=== PATIENT | female | born 1965 | race Caucasian/White ===

== ENCOUNTER 2016-09-09 07:36 | Inpatient (IN) | payer OTHER ==
[~2016-09-09] VITALS: Ht 162.6 cm; Wt 70.2 kg
[2016-09-09] VITALS (9 sets, daily range): BP systolic 124–188; BP diastolic 73–117; PULSE 88–100; TEMP 36.5–37.3; O2SAT 92–98; BMI 29.3
[~2016-09-09 07:36] MED LIST: ACET325T96 PO; ADVIN10/60 INH; ALBUAER INH; ASPI81TA28 PO; ATOR-24 PO; BISA10SU5 PR; BUTA1CAP20 PO; DOCU-94 PO; FERR325T74 PO; FLUO40CA8 PO; FLUT0.15; FURO-85 PO; HEPA1INJ22 SQ; INSDGI SQ; ISOS30TA3 PO; LCTL30 PO; LISI-729 PO; METO25TA3 PO; MOMLX PO; MRLP17X PO; MULT-513 PO; NRN300 PO; NVLGIPEN SC; ONDA4TAB46 PO; OXYC-57 PO; OXYC-59 PO; POTA10TA PO; PRT40 PO; SENN-65 PO
[2016-09-09] MEDS ORDERED: VANCOMYCIN 1GM/270ML NSS IV STA (07:45)
[2016-09-09] MEDS ORDERED: PIPERACILLIN/TAZOBACTAM 4.5 GM/100ML D5W IV STA (07:45)
[2016-09-09] MEDS ORDERED: SODIUM CHLORIDE 0.9% 1000ML 1,000 ML IV ONE (07:45)
[2016-09-09] MEDS ORDERED: ACETAMINOPHEN 500 MG TAB PO STA (07:45)
[2016-09-09 08:08] LABS: URINE APPEARANCE CLEAR (CLEAR); URINE BILIRUBIN NEG (NEG); URINE COLOR YELLOW; URINE NITRITE NEG (NEG); URINE SPECIFIC GRAVITY 1.021 (1.000-1.030); UROBILINOGEN NEG (NEG); ZZURINE CULT IF INDIC CATH YES
[2016-09-09 08:21] LABS: MANUAL MICROSCOPIC REQUIRED? NO; REVIEW REQ? NO
[2016-09-09 08:38] LABS: BASO % 0.1 %; BASO ABS # 0.02 K/uL (0-0.2); EOS % 2.3 %; HEMATOCRIT 23.1 % (37-47); IG% 0.4 %; LYMPH % 5.8 %; LYMPH ABS # 0.79 K/uL (1.2-3.4); MEAN CELL VOLUME 88.5 fL (80-100); MEAN CORPUSCULAR HEMOGLOBIN 28.4 pg (25-34); MONO % 3.2 %; NEUT % 88.2 %; PLATELET COUNT 397 K/uL (130-400); RED BLOOD COUNT 2.61 M/uL (4.2-5.4); WHITE BLOOD COUNT 13.62 K/uL (4.8-10.8)
--- NOTE | 2016-09-09 08:44 | DIAGNOSTIC IMAGING REPORT ---
CHEST ONE VIEW PORTABLE CLINICAL HISTORY: Sepsis dyspnea COMPARISON STUDY: No previous studies for comparison. FINDINGS: Small parenchymal infiltrate medial left base. Atelectasis right base. Mid and upper lungs are clear. Diaphragms smooth. IMPRESSION: Small parenchymal infiltrate left base. Focal atelectasis right base. Electronically signed by: Rainer Solis M.D. 09/09/2016 8:42 AM Dictated Date/Time: 09/09/2016 8:42 AM
[2016-09-09] MEDS ORDERED: ALBUT/IPRATROP 3MG/0.5MG NEB 3 ML VIAL INH STA (08:50)
[2016-09-09 08:56] LABS: COMPLETE YES
[2016-09-09 08:57] LABS: ALT/SGPT 120 U/L (12-78); AST/SGOT 205 U/L (15-37); BLOOD UREA NITROGEN 34 mg/dl (7-18); BUN/CREATININE RATIO 20.1 (10-20); CALCIUM 8.7 mg/dl (8.5-10.1); CARBON DIOXIDE 28 mmol/L (21-32); CHLORIDE 99 mmol/L (98-107); GLUCOSE 335 mg/dl (70-99); MAGNESIUM 2.3 mg/dl (1.8-2.4); POTASSIUM 4.9 mmol/L (3.5-5.1); PROTHROMBIN TIME (PATIENT) 10.9 SECONDS (9.0-12.0); SODIUM 134 mmol/L (136-145)
[2016-09-09 09:00] LABS: ALB/GLOB RATIO 0.6 (0.9-2)
[2016-09-09] MEDS ORDERED: NovoLIN-R INSULIN PER UNIT CHARGE IV STA (09:02)
--- NOTE | 2016-09-09 09:02 | DIAGNOSTIC IMAGING REPORT ---
CT HEAD WITHOUT CONTRAST (CT) CLINICAL HISTORY: confusion COMPARISON STUDY: 04-20 TECHNIQUE: Axial CT of the brain is performed from the vertex to the skull base. IV contrast was not administered for this examination. CT DOSE: 537.48 mGy.cm FINDINGS: No intra or extra-axial mass lesions are visualized. There is no CT evidence of acute cortical infarction. There is no evidence of midline shift. There is no acute hemorrhage. No calvarial fractures are visualized. There is no evidence of pathologic ventricular dilatation. There is no evidence of acute sinusitis IMPRESSION: Normal noncontrast head CT for age Electronically signed by: Cristian Daniel M.D. 09/09/2016 9:00 AM Dictated Date/Time: 09/09/2016 8:59 AM
[2016-09-09 09:07] LABS: ALKALINE PHOSPHATASE 694 U/L (45-117); BETA-HYDROXYBUTYRATE 0.75 mg/dL (0.2-2.81); THYROID STIMULATING HORMONE 0.208 uIu/ml (0.300-4.500)
[2016-09-09] MEDS ORDERED: CASPOFUNGIN INJ 50 MG in SODIUM CHLORIDE 0.9% 250ML 250 ML IV STA (09:15)
--- NOTE | 2016-09-09 09:18 | EMERGENCY ROOM VISIT NOTE ---
History Report prepared by Blue: Samia Brown Under the Supervision of: Dr. Pablo Ortiz M.D. First contact with patient: 07:40 Stated Complaint: FEVER, ALTERED MENTAL, POSSIBLE SEPSIS History of Present Illness The patient is a 51 year old female who presents to the Emergency Room with complaints of persistent altered mental status starting this morning. The patient was brought to the ED by EMS from [facility]. They report that the patient has been lethargic and has had a fever since she woke up this morning. Her O2 sat was 83 on room air and her blood sugar was found to be in the 390s. She was given 10 units of insulin at [facility] and put on nasal cannula. She was not given any medications by EMS en route. She reports SOB which started today. She denies any cough or vomiting. She denies being in any pain. She has a history of COPD and has inhalers at home. The patient was on vancomycin. Her last dose was yesterday. She was also on oral Cipro and an antifungal medication. Source of History: patient, nursing staff Onset: this morning Position: other (global) Quality: other (altered mental status) Timing: other (persistent) Associated Symptoms: + SOB, No cough, No vomiting Note: Pt denies being in any pain. Review of Systems See HPI for pertinent positives & negatives. A total of 10 systems reviewed and were otherwise negative. Past Medical & Surgical Medical Problems: (1) CAD (coronary artery disease) (2) Chronic deep vein thrombosis (DVT) of left upper extremity (3) Chronic osteomyelitis involving right ankle and foot (4) COPD (chronic obstructive pulmonary disease) (5) Depression (6) Diabetes (7) Diabetic retinopathy (8) DM type 2 (diabetes mellitus, type 2) (9) Gastroparesis (10) GERD (gastroesophageal reflux disease) (11) History of migraine (12) Hyperlipidemia (13) Hypertension (14) TIA (transient ischemic attack) (15) TIA (transient ischemic attack) Surgical Problems: (1) H/O eye surgery (2) History of esophagogastroduodenoscopy (EGD) (3) S/P amputation (4) S/P cholecystectomy (5) Status post skin graft Family History Cardiac disorder MOTHER Diabetes mellitus FATHER MOTHER SISTER FH: cancer MOTHER Hypertension FATHER Social History Smoking Status: Former Smoker Marital Status: single Current/Historical Medications Scheduled Aspirin (Aspirin Ec), 81 MG PO DAILY Atorvastatin (Lipitor), 40 MG PO DAILY Bupropion (Wellbutrin Sr), 100 MG PO QAM Caspofungin (Cancidas), 35 MG IV DAILY Cholecalciferol (Vitamin D3), 1 CAP PO DAILY Ciprofloxacin (Ciprofloxacin HCl), 500 MG PO BID Diphenhydramine Hcl (Benadryl Allergy), 1 TAB PO Q6H Ferrous Gluconate (Ferrous Gluconate), 1 TAB PO QDB Fluoxetine (Prozac), 60 MG PO DAILY Fluticasone Propionate (Nasal) (Flonase Allergy Relief), 2 SPRAYS NA DAILY Fluticasone-Salmeterol 115/21 Mcg (Advair Hfa 115/21 Mcg), 2 PUFF INH BID Furosemide (Lasix), 20 MG PO QAM Gabapentin (Gabapentin), 600 MG PO TID Insulin Aspart (Novolog Flexpen), 3 UNITS SC UD Insulin Aspart (Novolog Flexpen), 6 SC QDD Insulin Glargine (Lantus), 16 UNITS SQ BID Isosorbide Mononitrate Ext Rel (Imdur Ext Rel), 30 MG PO QAM Lactobacillus Acidophilus (Lactinex), 1 TAB PO BID Lisinopril (Zestril), 5 MG PO DAILY Loratadine (Claritin), 10 MG PO DAILY Metoclopramide Hcl (Metoclopramide Hcl), 5 MG PO QID Metoprolol Succinate (Toprol Xl), 12.5 MG PO BID Nystatin (Nystatin Suspension), 5 ML PO QID Pantoprazole (Pantoprazole Sodium), 1 TAB PO DAILY Polyethylene (Miralax), 17 GM PO DAILY Senna/Docusate Sod (Senokot S), 1 TAB PO BID Sucralfate (Carafate), 10 ML PO Q6H Triamcinolone Acet (Triamcinolone Acetonide), 1 APPLN TOP BID Vancomycin Hcl (Vancomycin Hcl), 1 GM IV DAILY [Ondansetron Odt], 4 MG PO Q8H Scheduled PRN Acetaminophen Tab (Tylenol), 650 MG PO Q4 PRN for Pain or Fever Albuterol Sulfate (Proventil Hfa), 2 PUFFS INH BID PRN for SOB/Wheezing Morphine Sulfate Ir (Morphine Sulfate Ir), 15 MG PO DAILY PRN for Pain Oxycodone Ir (Roxicodone Ir), 5 MG PO Q4H PRN for Severe Pain Promethazine Hcl (Phenergan), 25 MG PO Q6H PRN for Nausea [Artif Tears Op Melina], 1 DROP OP TID PRN for PRN Allergies Coded Allergies: Metoclopramide (Unverified Allergy, Severe, unknown, 09/09/16) Ondansetron (Unverified Allergy, Severe, unknown, 09/09/16) Sulfa Antibiotics (Unverified Allergy, Severe, unknown, 09/09/16) Amoxicillin (Unverified Allergy, Unknown, UNKNOEN, 09/09/16) Bee Venom (Unverified Allergy, Unknown, HIVES, 09/09/16) Clavulanic Acid (Unverified Allergy, Unknown, UNKNOWN, 09/09/16) Erythromycin (Unverified Allergy, Unknown, UNKNOWN, 09/09/16) Procaine (Unverified Allergy, Unknown, UNKNOWN, 09/09/16) Ethanol (Verified Adverse Reaction, Severe, seizure per pt, 09/09/16) Guaifenesin (Verified Adverse Reaction, Severe, seizure per pt, 09/09/16) Physical Exam Vital Signs Date Time Temp Pulse Resp B/P Pulse Ox O2 Delivery O2 Flow Rate FiO2 09/09/16 12:45 16 98 Nasal Cannula 2.0 09/09/16 12:41 36.5 89 16 154/89 98 2.0 09/09/16 12:15 36.5 96 16 148/85 98 2.0 09/09/16 11:45 37.1 95 14 136/80 96 09/09/16 11:30 37.2 96 16 135/81 97 2.0 09/09/16 11:15 99 16 129/75 96 Nasal Cannula 2.0 09/09/16 11:07 37.3 100 16 124/73 96 09/09/16 09:40 37.2 107 18 113/66 93 Nasal Cannula 2.0 09/09/16 09:15 92 Nasal Cannula 2.0 09/09/16 08:44 102 18 138/82 92 Nasal Cannula 2.0 09/09/16 07:56 38.9 113 16 142/80 80 Room Air 09/09/16 07:55 94 Nasal Cannula 2.0 09/09/16 07:45 115 Physical Exam GENERAL: Patient is in no acute distress. HEENT: No acute trauma, normocephalic atraumatic, mucous membranes dry, no nasal congestion, no scleral icterus. NECK: No stridor, no adenopathy, no meningismus, trachea is midline. LUNGS: Crackles at bases especially the left, no wheezes. Breath sounds equal, no respiratory distress. HEART: Tachycardic with regular rhythm no murmurs. ABDOMEN: Soft, nontender, bowel sounds positive, no hernias, no peritonitis. GROIN: No cellulitis, Segovia catheter draining yellow urine. EXTREMITIES: Right below knee amputation site still has angelica in place, some serous oozing on dressing, no sign of infection, no signs for acute trauma. NEUROLOGIC: Confused but weak, answers simple questions, moving all extremities , no focal deficits. SKIN: No rash, no jaundice, no diaphoresis. Medical Decision & Procedures ER Provider Diagnostic Interpretation: X ray results and stated below per my interpretation and radiologist interpretation. Other radiology results and stated below per my review and radiologist interpretation: CHEST ONE VIEW PORTABLE CLINICAL HISTORY: Sepsis dyspnea COMPARISON STUDY: No previous studies for comparison. FINDINGS: Small parenchymal infiltrate medial left base. Atelectasis right base. Mid and upper lungs are clear. Diaphragms smooth. IMPRESSION: Small parenchymal infiltrate left base. Focal atelectasis right base. Electronically signed by: Rainer Solis M.D. 09/09/2016 8:42 AM Dictated Date/Time: 09/09/2016 8:[address] HEAD WITHOUT CONTRAST (CT) CLINICAL HISTORY: confusion COMPARISON STUDY: 04-20 TECHNIQUE: Axial CT of the brain is performed from the vertex to the skull base. IV contrast was not administered for this examination. CT DOSE: 537.48 mGy.cm FINDINGS: No intra or extra-axial mass lesions are visualized. There is no CT evidence of acute cortical infarction. There is no evidence of midline shift. There is no acute hemorrhage. No calvarial fractures are visualized. There is no evidence of pathologic ventricular dilatation. There is no evidence of acute sinusitis IMPRESSION: Normal noncontrast head CT for age Electronically signed by: Cristian Daniel M.D. 09/09/2016 9:00 AM Dictated Date/Time: 09/09/2016 8:59 AM Laboratory Results 09/09/16 08:25 Red Blood Count 2.61, Mean Corpuscular Volume 88.5, Mean Corpuscular Hemoglobin 28.4, Mean Corpuscular Hemoglobin Concent 32.0, Mean Platelet Volume 12.0, Neutrophils (%) (Auto) 88.2, Lymphocytes (%) (Auto) 5.8, Monocytes (%) (Auto) 3.2, Eosinophils (%) (Auto) 2.3, Basophils (%) (Auto) 0.1, Neutrophils # (Auto) 12.02, Lymphocytes # (Auto) 0.79, Monocytes # (Auto) 0.43, Eosinophils # (Auto) 0.31, Basophils # (Auto) 0.02 09/09/16 08:25 Test 09/09/16 07:43 09/09/16 07:48 09/09/16 08:25 09/09/16 08:33 Urine Color YELLOW Urine Appearance CLEAR (CLEAR) Urine pH 5.0 (4.5-7.5) Urine Specific [place] 1.021 (1.000-1.030) Urine Protein NEG (NEG) Urine Glucose (UA) 3+ (NEG) Urine Ketones NEG (NEG) Urine Occult Blood NEG (NEG) Urine Nitrite NEG (NEG) Urine Bilirubin NEG (NEG) Urine Urobilinogen NEG (NEG) Urine Leukocyte Esterase SMALL (NEG) Urine WBC (Auto) 10-30 /hpf (0-5) Urine RBC (Auto) 0-4 /hpf (0-4) Urine Hyaline Casts (Auto) 1-5 /lpf (0-5) Urine Epithelial Cells (Auto) 10-20 /lpf (0-5) Urine Bacteria (Auto) NEG (NEG) Bedside Glucose 337 mg/dl (70-90) White Blood Count 13.62 K/uL (4.8-10.8) Red Blood Count 2.61 M/uL (4.2-5.4) Hemoglobin 7.4 g/dL (12.0-16.0) Hematocrit 23.1 % (37-47) Mean Corpuscular Volume 88.5 fL (80-100) Mean Corpuscular Hemoglobin 28.4 pg (25-34) Mean Corpuscular Hemoglobin Concent 32.0 g/dl (32-36) Platelet Count 397 K/uL (130-400) Mean Platelet Volume 12.0 fL (7.4-10.4) Neutrophils (%) (Auto) 88.2 % Lymphocytes (%) (Auto) 5.8 % Monocytes (%) (Auto) 3.2 % Eosinophils (%) (Auto) 2.3 % Basophils (%) (Auto) 0.1 % Neutrophils # (Auto) 12.02 K/uL (1.4-6.5) Lymphocytes # (Auto) 0.79 K/uL (1.2-3.4) Monocytes # (Auto) 0.43 K/uL (0.11-0.59) Eosinophils # (Auto) 0.31 K/uL (0-0.5) Basophils # (Auto) 0.02 K/uL (0-0.2) RDW Standard Deviation 49.4 fL (36.4-46.3) RDW Coefficient of Variation 15.3 % (11.5-14.5) Immature Granulocyte % (Auto) 0.4 % Immature Granulocyte # (Auto) 0.05 K/uL (0.00-0.02) Prothrombin Time 10.9 SECONDS (9.0-12.0) Prothromb Time International Ratio 1.0 (0.9-1.1) Activated Partial Thromboplast Time 26.4 SECONDS (21.0-31.0) Partial Thromboplastin Ratio 1.0 Anion Gap 7.0 mmol/L (3-11) Estimated GFR () 40.3 Estimated GFR (Non- 34.8 BUN/Creatinine Ratio 20.1 (10-20) Calcium Level 8.7 mg/dl (8.5-10.1) Magnesium Level 2.3 mg/dl (1.8-2.4) Total Bilirubin 0.3 mg/dl (0.2-1) Aspartate Amino Transf (AST/SGOT) 205 U/L (15-37) Alanine Aminotransferase (ALT/SGPT) 120 U/L (12-78) Alkaline Phosphatase 694 U/L (45-117) Troponin I 0.034 ng/ml (0-0.045) Total Protein 6.3 gm/dl (6.4-8.2) Albumin 2.4 gm/dl (3.4-5.0) Globulin 3.9 gm/dl (2.5-4.0) Albumin/Globulin Ratio 0.6 (0.9-2) Beta-Hydroxybutyric Acid 0.75 mg/dL (0.2-2.81) Thyroid Stimulating Hormone (TSH) 0.208 uIu/ml (0.300-4.500) Free Thyroxine 1.37 ng/dl (0.80-1.60) Free Triiodothyronine 2.53 pg/ml (2.30-4.20) Bedside Lactic Acid Venous 1.27 mmol/L (0.90-1.70) Laboratory results reviewed by me. Medications Administered Medications (Trade) Dose Ordered Sig/Josseline Route Start Time Stop Time Status Last Admin Dose Admin Sodium Chloride (Nss 1000ml) 1,000 ml @ 999 mls/hr Q1H1M ONCE IV 09/09/16 07:45 09/09/16 08:45 DC 09/09/16 07:45 999 MLS/HR Piperacillin Sod/ Tazobactam Sod (Zosyn Iv) 4.5 gm ONE STAT IV 09/09/16 07:45 09/09/16 07:48 DC 09/09/16 08:42 4.5 GM Vancomycin HCl (Vancomycin 1gm/ 270ml Nss) 1 gm ONE STAT IV 09/09/16 07:45 09/09/16 07:49 DC 09/09/16 08:41 1 GM Acetaminophen (Tylenol Tab) 1,000 mg NOW STAT PO 09/09/16 07:45 09/09/16 07:49 DC 09/09/16 08:42 1,000 MG Albuterol/ Ipratropium (Duoneb) 3 ml NOW STAT INH 09/09/16 08:50 09/09/16 08:52 DC 09/09/16 08:50 3 ML Insulin Human Regular 8 units 8 units NOW STAT IV 09/09/16 09:02 09/09/16 09:04 DC 09/09/16 09:11 8 UNITS Caspofungin/ Sodium Chloride (Cancidas Inj/ Nss 250ml) 260 ml @ 250 mls/hr NOW STAT IV 09/09/16 09:15 09/09/16 10:17 DC 09/09/16 09:40 250 MLS/HR Procedure Central Venous Catheter Indication: need for IV access, sepsis Catheter type: triple lumen Location: left groin Verbal consent was obtained after the risks and benefits were explained, including but not limited to pneumothorax, hemothorax, vessel injury, bleeding, scarring, infection, pain, and bone/joint/nerve damage. At this time, the risks of the procedure are less than the risks of NOT performing the procedure. A time out was taken and the correct patient and site identified. The patient was placed in the supine position and the skin was prepped in the standard fashion with chlorhexidine and full sterile drapes applied. The proper landmarks were identified with ultrasound, anesthetized with 1% lidocaine without epinephrine, and the needle was inserted through the skin in the standard fashion. The needle was carefully advanced into blood vessel lumen. The guidewire was placed uneventfully. The vessel is dilated and the catheter was placed. It was sutured into position. There was good blood return from all ports. The patient tolerated the procedure well and there were no complications. ECG Indication: altered mental status Rate (beats per minute): 113 Rhythm: sinus tachycardia Findings: no acute ischemic change, no ectopy ED Course 0740: The patient was evaluated in room A10. A complete history and physical exam was performed. 0745: Acetaminophen 1000 mg PO, Vancomycin HCl 1 gm IV, Zosyn Iv 4.5 gm IV, NSS 1000 ml @ 999 mls/hr IV. 0850: Duoneb 3 ml INH. 0858: I discussed the patient's case [facility]. The patient will be evaluated for further management. 0902: Insulin Human Regular 8 units IV, Caspofungin 50 mg/Sodium Chloride 260 ml @ 250 mls/hr IV. Medical Decision Differential diagnoses: sepsis, dehydration, pneumonia, UTI, cellulitis, bacteremia, electrolyte imbalance, anemia There is a mild leukocytosis which would be consistent with infection. The patient is anemic with a hemoglobin of 7.5-as per her old records, last hemoglobin was 8 just a few days ago. There is some renal insufficiency/ dehydration by renal panel testing. Glucose was in the 300 range. Elevation to the liver enzymes was noted. Urinalysis does not show signs of infection. Chest film shows a left base infiltrate. No CHF. EKG shows sinus tachycardia, no acute ischemia. Cardiac enzyme testing times one is not consistent with acute cardiac injury. Blood cultures and urine cultures are pending. Lactic acid level was not elevated making severe sepsis less likely. There was no coagulopathy. I was able to review some of the records from her recent hospital stay. She had been on IV antibiotics and IV antifungals. She had been diagnosed with sepsis. She had a recent right below the knee amputation for osteomyelitis. The patient was aggressively managed. She was given IV saline. She was ordered for IV Zosyn and IV vancomycin. She was ordered for IV Caspofungin. She received a DuoNeb, oral Tylenol, IV insulin. Blood was ordered for possible transfusion. A brain CT was done because of the confusion, there was no acute bleed or mass effect. I did elect to place a left femoral central line as her IV access was poor. This went without incident as noted in the above procedure note. The patient is septic, it appears that she is septic from a pneumonia. She is being treated with IV antibiotics and IV antifungals. The antifungal was given because she had recently grown areli from blood cultures. She had been on antifungals prior to her arrival at our hospital. I spoke to the patient and the on-call hospitalist. Case management has been involved. Admission/observation is warranted. Consults Time Called: 0850 Consulting Physician: [facility] hospitalist group Returned Call: [phone] I discussed the patient's case with her. The patient will be evaluated for further management. Impression Primary Impression: Sepsis Additional Impressions: Change in mental status Pneumonia Anemia Critical Care I have personally spent greater than 35 minutes of critical care time in the direct management of this patient. This includes bedside care, interpretation of diagnostic studies, and testing, discussion with consultants, patient, and family members, and other required patient management activities. This 35 minutes is in excess of all separately billable procedures. Scribe Attestation The scribe's documentation has been prepared under my direction and personally reviewed by me in its entirety. I confirm that the note above accurately reflects all work, treatment, procedures, and medical decision making performed by me. Departure Information Dispostion Being Evaluated By Hospitalist Referrals Sky Tesfaye (PCP) Problem Qualifiers
[2016-09-09] MEDS ORDERED: NITROGLYCERIN 0.4 MG SL PER TAB CHARGE SL PRN (09:45)
[2016-09-09] MEDS ORDERED: ACETAMINOPHEN 325 MG TAB PO PRN (09:45)
[2016-09-09] MEDS ORDERED: CMP5 PO (09:48)
[2016-09-09] MEDS ORDERED: TRMCR515 TOP (09:48)
[2016-09-09] MEDS ORDERED: FLUT1INH7 INH (09:48)
[2016-09-09] MEDS ORDERED: [UNRECOGNIZED DRUG - CODE] IV (09:48)
[2016-09-09] MEDS ORDERED: SUCR1TAB PO (09:48)
[2016-09-09] MEDS ORDERED: OXYC1TAB3 PO (09:48)
[2016-09-09] MEDS ORDERED: VANC1INJ IV (09:48)
[2016-09-09] MEDS ORDERED: BUPR-83 PO (09:48)
[2016-09-09] MEDS ORDERED: NYSS/ PO (09:48)
[2016-09-09] MEDS ORDERED: CPR500 PO (09:48)
[2016-09-09] MEDS ORDERED: CHOL2000 PO (09:48)
[2016-09-09] MEDS ORDERED: GLUCOSE 10 TABS/TUBE PO PRN (10:00)
[2016-09-09] MEDS ORDERED: GLUCAGON FOR INJ 1 MG VIAL SQ PRN (10:00)
[2016-09-09] MEDS ORDERED: DEXTROSE 50% 50 ML SYR IV PRN (10:00)
[2016-09-09] MEDS ORDERED: GLUCOSE 40% GEL 15 GM TUBE PO PRN (10:00)
[2016-09-09] MEDS ORDERED: POLYETHYLENE (MIRALAX) 17 GM PACK PO PRN (10:30)
[2016-09-09] MEDS ORDERED: PROCHLORPERAZINE MALEATE 5 MG TAB PO PRN (10:30)
[2016-09-09] MEDS ORDERED: FLUT115A INH (10:39)
[2016-09-09] MEDS ORDERED: ONDANSETRON ODT PO (10:40)
[2016-09-09] MEDS ORDERED: PROM25TA9 PO (10:40)
[2016-09-09] MEDS ORDERED: LCTX PO (10:40)
[2016-09-09] MEDS ORDERED: NVLGI/PEN SC (10:40)
[2016-09-09] MEDS ORDERED: METO5TAB2 PO (10:40)
[2016-09-09] MEDS ORDERED: MORP15TA PO (10:40)
[2016-09-09] MEDS ORDERED: BUPR100T8 PO (10:40)
[2016-09-09] MEDS ORDERED: CRFL PO (10:40)
[2016-09-09] MEDS ORDERED: DIPH1TAB87 PO (10:40)
[2016-09-09] MEDS ORDERED: ARTIFICIAL TEARS OP (10:40)
[2016-09-09] MEDS ORDERED: CLR10 PO (10:40)
--- NOTE | 2016-09-09 10:52 | History and Physical ---
History & Physical Date & Time of Service: Sep 09, 2016 at 09:57 Chief Complaint: Fever, Altered Mental, Possible Sepsis Primary Care Physician: Sky Tesfaye History of Present Illness Source: patient, clinic records, hospital records Patient seen and examined. 51 year old female with PMHx of IDDM, HTN, HLD, CAD , depression GERD, and recent right foot osteomyelitis s/p BKA, MRSA, and fungemia presents to the ED from [facility] with AMS this morning. Per report patient was found confused this AM. She was febrile at 103 F, she was hypoxic on RA. EMS was called and she was brought to the ED for further evaluation. When seen by this real estate underwriter nursing staff states patients mental status has improved. She was still unsure where she was and slow to answer questions. She reports she has been feeling very cold recently, she has rhinorrhea, and cough. She denies sputum production. She states sometimes she has chest pain. She reports diarrhea and dysuria. She states she has had vomiting recently and states sometimes she feels like she chokes. She denies SOB. Patient was discharged from [facility] yesterday following a RBKA for osteomyelitis. A blood culture on 08/25 grew areli albicans. [facility] vancom[facility], Cipro and caspofungin. In the ED patient is febrile, tachycardic, and hypoxic, wbc count is 13K, lactate is <2, CXR shows left base infiltrate. Crea is 1.7 She received duonebs, IVFs, Vanco, Zosyn, and caspofungin. She is resting comfortably. She will be admitted for further workup and treatment. Past Medical/Surgical History Medical Problems: (1) CAD (coronary artery disease) Status: Chronic (2) Chronic deep vein thrombosis (DVT) of left upper extremity Status: Chronic (3) Chronic osteomyelitis involving right ankle and foot Status: Chronic (4) COPD (chronic obstructive pulmonary disease) Status: Chronic (5) Depression Status: Chronic (6) Diabetes Status: Chronic (7) Diabetic retinopathy Status: Chronic (8) DM type 2 (diabetes mellitus, type 2) Status: Chronic (9) Gastroparesis Status: Chronic (10) GERD (gastroesophageal reflux disease) Status: Chronic (11) History of migraine Status: Chronic (12) Hyperlipidemia Status: Chronic (13) Hypertension Status: Chronic (14) TIA (transient ischemic attack) Status: Resolved (15) TIA (transient ischemic attack) Status: Chronic Surgical Problems: (1) H/O eye surgery Status: Chronic (2) History of esophagogastroduodenoscopy (EGD) Status: Chronic (3) S/P amputation Permanent Comment: partial amputation of heel bone on right foot Status: Chronic (4) S/P cholecystectomy Status: Chronic (5) Status post skin graft Permanent Comment: right foot Status: Chronic Family History Cardiac disorder MOTHER Diabetes mellitus FATHER MOTHER SISTER FH: cancer MOTHER Hypertension FATHER Social History Smoking Status: Former Smoker Alcohol Use: none Marital Status: single Housing status: lives alone Occupational Status: unemployed Multi-Drug Resistant Organisms History of MDRO: Yes Type of MDRO: MRSA Allergies Coded Allergies: Metoclopramide (Unverified Allergy, Severe, unknown, 09/09/16) Ondansetron (Unverified Allergy, Severe, unknown, 09/09/16) Sulfa Antibiotics (Unverified Allergy, Severe, unknown, 09/09/16) Amoxicillin (Unverified Allergy, Unknown, UNKNOEN, 09/09/16) Bee Venom (Unverified Allergy, Unknown, HIVES, 09/09/16) Clavulanic Acid (Unverified Allergy, Unknown, UNKNOWN, 09/09/16) Erythromycin (Unverified Allergy, Unknown, UNKNOWN, 09/09/16) Procaine (Unverified Allergy, Unknown, UNKNOWN, 09/09/16) Ethanol (Verified Adverse Reaction, Severe, seizure per pt, 09/09/16) Guaifenesin (Verified Adverse Reaction, Severe, seizure per pt, 09/09/16) Home Medications Scheduled Aspirin (Aspirin Ec), 81 MG PO DAILY Atorvastatin (Lipitor), 40 MG PO DAILY Bupropion (Wellbutrin Sr), 100 MG PO QAM Caspofungin (Cancidas), 35 MG IV DAILY Cholecalciferol (Vitamin D3), 1 CAP PO DAILY Ciprofloxacin (Ciprofloxacin HCl), 500 MG PO BID Diphenhydramine Hcl (Benadryl Allergy), 1 TAB PO Q6H Ferrous Gluconate (Ferrous Gluconate), 1 TAB PO QDB Fluoxetine (Prozac), 60 MG PO DAILY Fluticasone Propionate (Nasal) (Flonase Allergy Relief), 2 SPRAYS NA DAILY Fluticasone-Salmeterol 115/21 Mcg (Advair Hfa 115/21 Mcg), 2 PUFF INH BID Furosemide (Lasix), 20 MG PO QAM Gabapentin (Gabapentin), 600 MG PO TID Insulin Aspart (Novolog Flexpen), 3 UNITS SC UD Insulin Aspart (Novolog Flexpen), 6 SC QDD Insulin Glargine (Lantus), 16 UNITS SQ BID Isosorbide Mononitrate Ext Rel (Imdur Ext Rel), 30 MG PO QAM Lactobacillus Acidophilus (Lactinex), 1 TAB PO BID Lisinopril (Zestril), 5 MG PO DAILY Loratadine (Claritin), 10 MG PO DAILY Metoclopramide Hcl (Metoclopramide Hcl), 5 MG PO QID Metoprolol Succinate (Toprol Xl), 12.5 MG PO BID Nystatin (Nystatin Suspension), 5 ML PO QID Pantoprazole (Pantoprazole Sodium), 1 TAB PO DAILY Polyethylene (Miralax), 17 GM PO DAILY Senna/Docusate Sod (Senokot S), 1 TAB PO BID Sucralfate (Carafate), 10 ML PO Q6H Triamcinolone Acet (Triamcinolone Acetonide), 1 APPLN TOP BID Vancomycin Hcl (Vancomycin Hcl), 1 GM IV DAILY [Ondansetron Odt], 4 MG PO Q8H Scheduled PRN Acetaminophen Tab (Tylenol), 650 MG PO Q4 PRN for Pain or Fever Albuterol Sulfate (Proventil Hfa), 2 PUFFS INH BID PRN for SOB/Wheezing Morphine Sulfate Ir (Morphine Sulfate Ir), 15 MG PO DAILY PRN for Pain Oxycodone Ir (Roxicodone Ir), 5 MG PO Q4H PRN for Severe Pain Promethazine Hcl (Phenergan), 25 MG PO Q6H PRN for Nausea [Artif Tears Op Melina], 1 DROP OP TID PRN for PRN Review of Systems See above for pertinent positives & negatives. A total of 10 systems reviewed and were otherwise negative. Physical Exam Vital Signs Date Time Temp Pulse Resp B/P Pulse Ox O2 Delivery O2 Flow Rate FiO2 09/09/16 09:40 37.2 107 18 113/66 93 Nasal Cannula 2.0 09/09/16 09:15 92 Nasal Cannula 2.0 09/09/16 08:44 102 18 138/82 92 Nasal Cannula 2.0 09/09/16 07:56 38.9 113 16 142/80 80 Room Air 09/09/16 07:55 94 Nasal Cannula 2.0 09/09/16 07:45 115 General Appearance: + pertinent finding (WD/WN 51 year old female who appears older than stated age lying in bed in NAD ) Head: normocephalic, atraumatic Eyes: PERRL, EOMI, sclerae normal ENT: hearing grossly normal, pharynx normal Neck: supple, no JVD Respiratory/Chest: chest non-tender, no respiratory distress, no accessory muscle use, + crackles (trace, left base ) Cardiovascular: no edema, no gallop, no JVD, no murmur, normal peripheral pulses, + tachycardia (100s) Abdomen/GI: normal bowel sounds, non tender, no organomegaly Back: normal inspection, no muscle spasm Extremities/Musculoskelatal: no calf tenderness, normal capillary refill, no pedal edema, + pertinent finding (right BKA ) Neurologic/Psych: + pertinent finding (Alert, oriented to time, and self. Answers questions approrpiately with encouragement and prompting. No focal deficits ) Skin: normal color, warm/dry, no rash Lymphatic: no adenopathy Diagnostics Laboratory Results Results Past 24 Hours Test 09/09/16 07:43 09/09/16 07:48 09/09/16 08:25 09/09/16 08:33 Range/Units Urine Color YELLOW Urine Appearance CLEAR CLEAR Urine pH 5.0 4.5-7.5 Urine Specific [place] 1.021 1.000-1.030 Urine Protein NEG NEG Urine Glucose (UA) 3+ NEG Urine Ketones NEG NEG Urine Occult Blood NEG NEG Urine Nitrite NEG NEG Urine Bilirubin NEG NEG Urine Urobilinogen NEG NEG Urine Leukocyte Esterase SMALL NEG Urine WBC (Auto) 10-30 0-5 /hpf Urine RBC (Auto) 0-4 0-4 /hpf Urine Hyaline Casts (Auto) 1-5 0-5 /lpf Urine Epithelial Cells (Auto) 10-20 0-5 /lpf Urine Bacteria (Auto) NEG NEG Bedside Glucose 337 70-90 mg/dl White Blood Count 13.62 4.8-10.8 K/uL Red Blood Count 2.61 4.2-5.4 M/uL Hemoglobin 7.4 12.0-16.0 g/dL Hematocrit 23.1 37-47 % Mean Corpuscular Volume 88.5 80-100 fL Mean Corpuscular Hemoglobin 28.4 25-34 pg Mean Corpuscular Hemoglobin Concent 32.0 32-36 g/dl Platelet Count 397 130-400 K/uL Mean Platelet Volume 12.0 7.4-10.4 fL Neutrophils (%) (Auto) 88.2 % Lymphocytes (%) (Auto) 5.8 % Monocytes (%) (Auto) 3.2 % Eosinophils (%) (Auto) 2.3 % Basophils (%) (Auto) 0.1 % Neutrophils # (Auto) 12.02 1.4-6.5 K/uL Lymphocytes # (Auto) 0.79 1.2-3.4 K/uL Monocytes # (Auto) 0.43 0.11-0.59 K/uL Eosinophils # (Auto) 0.31 0-0.5 K/uL Basophils # (Auto) 0.02 0-0.2 K/uL RDW Standard Deviation 49.4 36.4-46.3 fL RDW Coefficient of Variation 15.3 11.5-14.5 % Immature Granulocyte % (Auto) 0.4 % Immature Granulocyte # (Auto) 0.05 0.00-0.02 K/uL Prothrombin Time 10.9 9.0-12.0 SECONDS Prothromb Time International Ratio 1.0 0.9-1.1 Activated Partial Thromboplast Time 26.4 21.0-31.0 SECONDS Partial Thromboplastin Ratio 1.0 Sodium Level 134 136-145 mmol/L Potassium Level 4.9 3.5-5.1 mmol/L Chloride Level 99 98-107 mmol/L Carbon Dioxide Level 28 21-32 mmol/L Anion Gap 7.0 3-11 mmol/L Blood Urea Nitrogen 34 7-18 mg/dl Creatinine 1.70 0.60-1.20 mg/dl Estimated GFR () 40.3 Estimated GFR (Non- 34.8 BUN/Creatinine Ratio 20.1 10-20 Random Glucose 335 70-99 mg/dl Calcium Level 8.7 8.5-10.1 mg/dl Magnesium Level 2.3 1.8-2.4 mg/dl Total Bilirubin 0.3 0.2-1 mg/dl Aspartate Amino Transf (AST/SGOT) 205 15-37 U/L Alanine Aminotransferase (ALT/SGPT) 120 12-78 U/L Alkaline Phosphatase 694 45-117 U/L Troponin I 0.034 0-0.045 ng/ml Total Protein 6.3 6.4-8.2 gm/dl Albumin 2.4 3.4-5.0 gm/dl Globulin 3.9 2.5-4.0 gm/dl Albumin/Globulin Ratio 0.6 0.9-2 Beta-Hydroxybutyric Acid 0.75 0.2-2.81 mg/dL Thyroid Stimulating Hormone (TSH) 0.208 0.300-4.500 uIu/ml Bedside Lactic Acid Venous 1.27 0.90-1.70 mmol/L Microbiology Results 09/09/16 Blood Culture, Received Pending 09/09/16 Blood Culture, Received Pending 09/09/16 Urine Culture, Received Pending Diagnostic Radiology CT HEAD Per radiologist read: IMPRESSION: Normal noncontrast head CT for age CXR Per radiologist read: IMPRESSION: Small parenchymal infiltrate left base. Focal atelectasis right base. EKG Sinus Tachycardia 113 BPM, QTc 409 Impression Assessment and Plan Complicated 51 year old female discharged from [facility] to [facility] yesterday following, right BKA for osteomyelitis, also with fungemia, presents to the ED with confusion, fever hypoxia. SEPSIS secondary to Health Care Associated Pneumonia -Admit to tele -Presents with fever, confusion, tachycardia, hypoxia, leukocytosis, hyperglycemia, MABEL -Lactate <2, BP stable -Likely source: pneumonia -? aspiration pneumonia as patient currently on vanco, cipro, and capsofungin -Blood cultures, urine culture, sputum culture pending -empirically treat with Zosyn, Vancomycin -ID consulted placed for further input -check c. diff toxin -R/O Flu -CBC, PRP, Mg in AM FUNGEMIA -Blood culture on 08/25 with areli albicans -Caspofungin changed to fluconazole per ID -ID consulted for further management H/O OSTEOMYELITIS S/P RIGHT BKA -POD #4, -Has history of MRSA -continue Vancomycin -ID consult placed -contact precautions ACUTE BLOOD LOSS ANEMIA -secondary to Right BKA on 09/06 -hgb 7.4, no active bleeding -with history of CAD -transfuse 1 units PRBCs now ACUTE RENAL FAILURE -crea 1.7, baseline 1, was 2.4 yesterday -likely secondary to dehydration, sepsis -hold diuretics -IVF hydration -repeat in AM IDDM -with hyperglycemia, no DKA -SSI coverage -pharmacy consulted for glycemic control -update A1c -BSG AC HS -consistent carb diet CAD -states she occasionally has intermittent chest pain -troponin negative x 1 -EKG nonischemic -Repeat Troponin -continue BB, Statin ,Aspirin HLD -continue statin HTN -stable -continue BB -hold ACEI for MABEL -monitor in tele DEPRESSION -continue Prozac, Wellbutrin GERD -continue PPI, Carafate DVT PROPHYLAXIS: SCDs, RE: anemia CODE STATUS: FULL CODE DISPO:In my clinical judgment this beneficiary meets acute admission criteria, established by [facility], that includes being hospitalized through two midnights. Patient seen in collaboration with Dr. Van. I have seen, examined and discussed this patient and I agree with the above note. Patient presents from [facility] with AMS. Recent hospitalization and right BKA. Vitals reviewed. PE: General- drowsy Eyes- EOMI; no scleral icterus Neck- no stridor; trachea midline Lungs- CTA bilaterally; no wheezes/crackles Heart- RRR; no m/r/g Abdomen- soft; NTND; nBS Back- no gross abnormalities Extremities- right BKA bandage c/d/i Neuro- unable to fully assess as patient drowsy Skin- no appreciable rash Labs, imaging and EKG reviewed. Agree with plan as outlined above. ID consulted. Continue Vancomycin, Zosyn and Fluconazole. Repeat cultures pending. Transfuse 1unit PRBC's for anemia, likely related to recent surgery. Troponin uptrending, possibly demand in the setting of anemia and infection. EKG without ischemic changes. Trend troponin and check TTE. Glycemic pharmacy consulted for insulin management. Advanced Directives Existing Living Will: No Existing Power of Back Tufter: No VTE Prophylaxis VTE Risk Assessment Done? Y/N: Yes Risk Level: Moderate
[2016-09-09] MEDS ORDERED: PHARMACY GLYCEMIC MGMT CONSULT PRN (11:47)
--- NOTE | 2016-09-09 12:17 | Pharmacy Progress Note ---
Glycemic Control Intl Consult Date of Service Sep 09, 2016. Scope Glycemic Pharmacist consulted by Lauren Harrell PA-C on 09/09/16 for glycemic control and to write orders per [facility] inpatient glycemic control protocol Objective Weight (Kilograms): 77.300 Accuchecks BSG (last 24hrs): Test 09/09/16 07:48 09/09/16 08:25 Bedside Glucose 337 mg/dl (70-90) Random Glucose 335 mg/dl (70-99) Laboratory Data (last 24hrs) Test 09/09/16 08:25 Anion Gap 7.0 mmol/L BUN/Creatinine Ratio 20.1 Blood Urea Nitrogen 34 mg/dl Creatinine 1.70 mg/dl Potassium Level 4.9 mmol/L Sodium Level 134 mmol/L White Blood Count 13.62 K/uL Red Blood Count 2.61 M/uL Hemoglobin 7.4 g/dL Hematocrit 23.1 % Mean Corpuscular Volume 88.5 fL Mean Corpuscular Hemoglobin 28.4 pg Mean Corpuscular Hemoglobin Concent 32.0 g/dl Platelet Count 397 K/uL Mean Platelet Volume 12.0 fL Neutrophils (%) (Auto) 88.2 % Lymphocytes (%) (Auto) 5.8 % Monocytes (%) (Auto) 3.2 % Eosinophils (%) (Auto) 2.3 % Basophils (%) (Auto) 0.1 % Neutrophils # (Auto) 12.02 K/uL Lymphocytes # (Auto) 0.79 K/uL Monocytes # (Auto) 0.43 K/uL Eosinophils # (Auto) 0.31 K/uL Basophils # (Auto) 0.02 K/uL Recent Pertinent Medications Outpatient Anti-diabetic Regimen: * Lantus 16 units BID * Novolog 3 units w breakfast and lunch * Novolog 6 units w dinner * For BSG>150, use correction factor of 25 mg/dL/unit * A1c unavailable - on order with AM labs Risk Factors for Insulin Resistance: * Infection * Recent Surgery * Diet Assessment & Plan ASSESSMENT: * 51 yo F admitted with sepsis secondary to HCAP, BSGs >300 mg/dL in the ED * 8 units of Regular insulin IV given X 1 in ED @0900, Repeat BSG unavailable * Recent A1c unavailable to assess baseline resistance * Pt likely missed insulin doses this AM given ED admission time- give home dose of Lantus as soon as patient admitted * Initiate weight-based Novolog, stress of 2 and reassess in the AM * ADA & AACE recommend a goal blood sugar range 140-180 mg/dl for the majority of critically ill & non-critically ill patients. However, more stringent targets may be selected in individual cases. Will utilize more stringent goal of 110-150mg/dl based on patient age & comorbidities. Additionally, tighter glycemic control is warranted to facilitate wound/infection healing. PLAN FOR INPATIENT GLYCEMIC CONTROL: * Basal insulin with LANTUS 16 units SQ BID, first dose NOW * Correctional Insulin with NOVOLOG per scale ACHS + 0200 check for sustained hyperglycemia * Goal Range: Low 110 mg/dL - High 150 mg/dL * Correction Factor: 30 mg/dL/unit * Nutritional / Prandial insulin per carb ratio of 1 unit per 10 grams CHO consumed * A1c to be assessed with AM labs tomorrow * Please note that the plan above was derived based on current level of insulin resistance and hospital stress. These recommendations are appropriate for inpatient admission only. Plan of care upon discharge will need to be reassessed to avoid potential outpatient hypo/hyperglycemia. Thank you.
[2016-09-09] MEDS: NYSTATIN SUSP 500,000 U/5 ML UDC PO SCH ×3 (13:00→19:44)
[2016-09-09] MEDS ORDERED: INSULIN GLARGINE SOLOSTAR 100 UNITS/ML 3 ML PEN SC STA (13:24)
[2016-09-09] MEDS ORDERED: PIPERACILL/TAZOBAC CONSULT ACTIVE PRN (14:00)
[2016-09-09] MEDS ORDERED: CASPOFUNGIN~PHARMACY CONSULT IN PROGRESS PRN (14:00)
[2016-09-09] MEDS ORDERED: VANCOMYCIN CONSULT ACTIVE PRN (14:00)
--- NOTE | 2016-09-09 14:06 | Progress Note ---
Progress Note Date of Service Sep 09, 2016. Progress Note ID Consult Dictated #[id number] A/P: 1. Sepsis, broad ddx: bsi, hcap (infiltrate LLL, ? new), uti (doubt with negative ua), surgical site infection (recent bka) -Continue abx, reported outpt blood culture with c. albicans, received caspo at rehab and in ER today, LFT's slightly elevated, will change to fluconazole, but will need close monitoring of LFT's. Continue vanco and zosyn pending additional micro data -Sputum culture if able -Local wound care to incision -Will follow, thank you
[2016-09-09] MEDS: SODIUM CHLORIDE 0.9% 1000ML 1,000 ML IV SCH ×2 (14:18→21:36)
[2016-09-09] MEDS: INSULIN ASPART 100 UNITS/ML 3 ML PEN SC SCH ×3 (14:45→21:27)
--- NOTE | 2016-09-09 14:55 | INFECT. DISEASE CONSULTATION ---
DATE OF CONSULTATION: 09/09/2016 DATE OF CONSULTATION: 09/09/2016. REQUESTING PHYSICIAN: Dr. Van. HISTORY OF PRESENT ILLNESS: This is a 51-year-old female who was admitted from [facility] after she had presented there yesterday. Per her H\T\P she was recently hospitalized and underwent a right BKA secondary to underlying osteomyelitis. She reportedly had a history of MRSA infection. She also had positive blood cultures for Priya albicans on 08/25/2016. It is unclear if she also had positive blood cultures for MRSA as well. She was discharged from the hospital 1 day prior on vancomycin, caspofungin and ciprofloxacin for a previously diagnosed fungemia and osteomyelitis. She was found today to have a fever of 102 degrees at the senior care and also had an acute change in mental status. She was subsequently transferred to [facility] for further evaluation. On my examination, I am unable to obtain any review of systems from this patient as she is extremely lethargic. She is receiving a blood transfusion during my examination. She did have a T-max on arrival to the hospital today of 38.9. She has subsequently been afebrile. She was continued on her broad-spectrum antibiotics as she appears to be tolerating these. Again, I am unable to obtain any review of systems from this patient. She did undergo a CAT scan of the head which was unremarkable. She does have a white blood cell count of 13,000 and a left basilar infiltrate versus atelectasis on chest x-ray in the ER. Her creatinine is elevated at 1.7. PAST MEDICAL HISTORY: Significant for coronary artery disease, history of left upper extremity DVT, osteomyelitis of the right foot requiring a below the knee amputation, COPD, depression, diabetes requiring insulin, diabetic retinopathy, gastroparesis, GERD, migraine headaches, hyperlipidemia, hypertension, history of TIA. PAST SURGICAL HISTORY: Significant for eye surgery, EGD, BKA, cholecystectomy and skin grafting. FAMILY HISTORY: Noncontributory. SOCIAL HISTORY: Significant for history of tobacco use. There is no known alcohol or drug use. ALLERGIES: SHE HAS ALLERGIES TO REGLAN, ZOFRAN, SULFA, PENICILLIN, ERYTHROMYCIN, PROCAINE, ETHANOL AND GUAIFENESIN. CURRENT MEDICATIONS: Include aspirin, Lipitor, Wellbutrin, Prozac, Flonase, Imdur, Protonix, vitamin D, iron, Lantus, Toprol-XL, Senokot, eyedrops, Carafate, Neurontin, Zosyn, Percocet, insulin, Nystatin, oxycodone, albuterol, MiraLax, Tylenol. She also received vancomycin and caspofungin in the Emergency Room. PHYSICAL EXAMINATION: VITAL SIGNS: Again T-max is 38.9, current temperature is 36.6, pulse is 97, respiratory rate is 22, blood pressure is 188/117, oxygen saturation is 94-98% on 2 liters nasal cannula. GENERAL: She is lethargic, but responsive on my examination. HEAD, EYES, EARS, NOSE, AND THROAT: Mucous membranes are dry. HEART: Regular and tachycardic. LUNGS: Clear bilaterally with poor inspiratory effort. ABDOMEN: Soft and nondistended. There is no edema on the left lower extremity, right BKA dressing is clean, dry and intact. A Segovia catheter is in place with clear yellow urine. She is receiving a blood transfusion on my examination. LABORATORY STUDIES: CBC reveals a white blood cell count of 13.6, hemoglobin 7.4, hematocrit 23.1 and platelets are 397. Chemistry panel reveals a sodium of 134, potassium 4.9, chloride 99, bicarbonate 22, BUN 34, creatinine 1.7, glucose is 335, AST is 205, ALT is 120, alkaline phosphatase 694. Lactic acid is 1.2. Blood cultures and urine cultures are pending. IMAGING: As reviewed previously. ASSESSMENT AND PLAN: Clinical picture consistent with sepsis in a patient with recent diagnosed fungemia and osteomyelitis requiring amputation. She should be continued on broad-spectrum antibiotics. Vancomycin was given in the Emergency Room and this can be dosed after receiving a random vancomycin level with her elevated creatinine. Blood cultures are pending and I will follow the results of these. Per the H\T\P, she reportedly had Priya albicans that grew from previous blood cultures. Upon confirmation of this she could be changed to fluconazole 400 mg daily; however, she does have a mild elevation of her liver function studies and this will need to be monitored. It is unclear to me if an echocardiogram was performed at her last hospitalization, but if not this should be done to rule out endocarditis. Certainly this could be from new aspiration event or healthcare associated pneumonia as she does have a small left lower lobe infiltrate. It is unclear to me if this was present previously. However, she is on broad-spectrum antibiotics. If a sputum culture can be obtained, this should be done. Her urinalysis was unremarkable with only 10-30 WBCs and no bacteria. I would doubt UTI; however urine culture is pending. Certainly a surgical site infection would be of concern; however her dressing is clean and intact. She should remain on broad-spectrum antibiotics pending additional culture data. We will follow along with you. Thank you for this consultation.
[2016-09-09] MEDS: GABAPENTIN 300 MG CAP PO SCH ×2 (14:59→19:46)
[2016-09-09] MEDS: PIPERACILL/TAZOBAC IV 4.5 GM in DEXTROSE 5% 100ML IV SCH ×2 (14:59→21:37)
[2016-09-09] MEDS ORDERED: FLUCONAZOLE CONSULT ACTIVE PRN (15:00)
[2016-09-09] MEDS: OXYCODONE HCL IR 5 MG TAB (IMMEDIATE RELEASE) PO PRN ×2 (15:11→19:48)
[2016-09-09] MEDS: FLUCONAZOLE / NSS 200 MG in PREMIXED NSS 100 ML IV SCH ×4 (15:54→18:57)
--- NOTE | 2016-09-09 16:21 | Pharmacy Progress Note ---
Pharmacy Antibiotic Consult Date of Service: Sep 09, 2016. Pharmacy Dosing Scope Pharmacy is consulted to initiate Vancomycin, Zosyn and Diflucan IV dosing therapy, order appropriate labs and adjust drug dose/frequency. Subjective The patient is a 51 year old female admitted on Sep 09, 2016 at 09:33 from [facility]. She had just previously been discharged from [facility] in [place] with Osteomyelitis, Fungemia (positive blood culture for C. Albicans) on Vanc, Cipro and Caspofungin. Upon decline and fevers at [facility] she was sent here to [facility]. Objective Height (Feet): 5 Height (Inches): 4.00 Weight (Kilograms): 77.300 Lab Results (24hrs): Item Value Date Time Random Vancomycin Level 17.7 mcg/ml 09/09/16 1457 Laboratory Tests Test 09/09/16 08:25 BUN/Creatinine Ratio 20.1 Blood Urea Nitrogen 34 mg/dl Creatinine 1.70 mg/dl White Blood Count 13.62 K/uL Red Blood Count 2.61 M/uL Hemoglobin 7.4 g/dL Hematocrit 23.1 % Mean Corpuscular Volume 88.5 fL Mean Corpuscular Hemoglobin 28.4 pg Mean Corpuscular Hemoglobin Concent 32.0 g/dl Platelet Count 397 K/uL Mean Platelet Volume 12.0 fL Neutrophils (%) (Auto) 88.2 % Lymphocytes (%) (Auto) 5.8 % Monocytes (%) (Auto) 3.2 % Eosinophils (%) (Auto) 2.3 % Basophils (%) (Auto) 0.1 % Neutrophils # (Auto) 12.02 K/uL Lymphocytes # (Auto) 0.79 K/uL Monocytes # (Auto) 0.43 K/uL Eosinophils # (Auto) 0.31 K/uL Basophils # (Auto) 0.02 K/uL Micro Results: Item Value Date Time Blood Culture Received 09/09/16 0825 Blood Pending Blood Culture Received 09/09/16 0755 Blood Pending Urine Culture Received 09/09/16 0743 Urine,Catheterized Pending Recent Pertinent Medications Item Value Date Time Fluconazole/ 100 ml @ 100 mls/hr 09/10/16 1600 Sodium Chloride Q24H/IV 200 mg/Prmx Piperacillin Sod/ 120 ml @ 30 mls/hr 09/09/16 1400 Tazobactam Sod Q8H/IV 09/09/16 1459 4.5 gm/Dextrose Assessment & Plan Patient was given Vancomycin 1gm upon presentation to E.D. Given she had been on Vancomycin prior to admission, I called both [facility] in [place] and [facility] in [place]. I was able to confirm she was given no Antibiotics at [facility]. Upon speaking with pharmacist at [facility] I was also able to confirm her dose of Caspofungin which was subsequently changed to Diflucan by Dr. Matute. The Vancomycin dosing prior to arrival at [facility] was not routine from what I could obtain from the pharmacist and I therefore ordered a random level this afternoon. Given Random of 17.7mcg/ml I implemented my plan of daily Vancomycin 1150mg (~ 15mg/kg) and will check a trough level prior to 1600 dose on 09/11/16. I was told she had been receiving similar doses at [facility] and recently due to drop in renal function and somewhat elevated trough had been put on Vancomycin 750mg daily. The last confirmed dose I could ascertain from my conversation however was from 09/06/16 and it wasn't clear if she had any doses since. Goal trough level estimate: between 15-20 mcg/mL. Pharmacy will continue to follow and will adjust dose/frequency as necessary. Thank you
[2016-09-09] MEDS: SUCRALFATE 1 GM TAB PO SCH ×2 (16:53→19:46)
[2016-09-09] MEDS: VANCOMYCIN INJ 1,150 MG in SODIUM CHLORIDE 0.9% 250ML 250 ML IV SCH (16:53)
[2016-09-09] MEDS: TRIAMCINOLONE ACET 0.5% CR 15 GM TUBE EXT SCH (19:44)
[2016-09-09] MEDS: DOCUSATE SODIUM/SENNA 50/8.6MG TAB PO SCH (19:45)
[2016-09-09] MEDS: METOPROLOL SUCC 25MG EXT REL TAB PO SCH (19:46)
[2016-09-09] MEDS: INSULIN GLARGINE SOLOSTAR 100 UNITS/ML 3 ML PEN SC SCH (21:26)
[2016-09-09 22:01] LABS: INFLUENZA A PCR Neg for Influ A (NEG); INFLUENZA B PCR Neg for Influ B (NEG)
[2016-09-10] VITALS (8 sets, daily range): BP systolic 146–194; BP diastolic 85–119; PULSE 87–97; TEMP 36.7–37.1; O2SAT 91–97
[2016-09-10] MEDS ORDERED: INSULIN ASPART 100 UNITS/ML 3 ML PEN SC SCH (02:00)
[2016-09-10] MEDS: OXYCODONE HCL IR 5 MG TAB (IMMEDIATE RELEASE) PO PRN ×4 (02:39→19:19)
[2016-09-10] MEDS: SODIUM CHLORIDE 0.9% 1000ML 1,000 ML IV SCH (05:16)
[2016-09-10] MEDS: PIPERACILL/TAZOBAC IV 4.5 GM in DEXTROSE 5% 100ML IV SCH ×3 (05:16→21:56)
[2016-09-10 05:51] LABS: MEAN CELL VOLUME 89.3 fL (80-100); MEAN CORPUSCULAR HEMOGLOBIN 28.2 pg (25-34); MEAN CORPUSCULAR HGB CONC 31.5 g/dl (32-36); MEAN PLATELET VOLUME 12.7 fL (7.4-10.4); PLATELET COUNT 382 K/uL (130-400); RED BLOOD COUNT 2.91 M/uL (4.2-5.4); WHITE BLOOD COUNT 14.66 K/uL (4.8-10.8)
[2016-09-10 06:25] LABS: ESTIMATED AVERAGE GLUCOSE 226 mg/dl; HA1C FLAG Normal (Normal)
[2016-09-10 06:36] LABS: BUN/CREATININE RATIO 19.1 (10-20); CALCIUM 8.6 mg/dl (8.5-10.1); CREATININE 1.2 mg/dl (0.60-1.20); MAGNESIUM 2.1 mg/dl (1.8-2.4); POTASSIUM 4.5 mmol/L (3.5-5.1)
[2016-09-10 06:38] LABS: ALB/GLOB RATIO 0.6 (0.9-2)
[2016-09-10] MEDS: ASPIRIN 81 MG ECTAB PO SCH (07:34)
[2016-09-10] MEDS: FLUOXETINE HCL 20 MG CAP PO SCH (07:35)
[2016-09-10] MEDS: ISOSORBIDE MONONITRATE 30 MG TABCR PO SCH (07:35)
[2016-09-10] MEDS: PANTOprazole SOD 40 MG TAB PO SCH (07:35)
[2016-09-10] MEDS: CHOLECALCIFEROL 1000 INTER.UNIT TAB PO SCH (07:36)
[2016-09-10] MEDS: ATORVASTATIN 40 MG TAB PO SCH (07:36)
[2016-09-10] MEDS: DOCUSATE SODIUM/SENNA 50/8.6MG TAB PO SCH ×2 (07:36→19:19)
[2016-09-10] MEDS: BuPROPion SR 100 MG TABCR PO SCH (07:36)
[2016-09-10] MEDS: NYSTATIN SUSP 500,000 U/5 ML UDC PO SCH ×4 (07:37→19:19)
[2016-09-10] MEDS: METOPROLOL SUCC 25MG EXT REL TAB PO SCH ×2 (07:37→19:18)
[2016-09-10] MEDS: FERROUS GLUCONATE 324 MG TAB PO SCH (07:37)
[2016-09-10] MEDS: SUCRALFATE 1 GM TAB PO SCH ×4 (07:38→19:19)
[2016-09-10] MEDS: GABAPENTIN 300 MG CAP PO SCH ×3 (07:38→19:19)
[2016-09-10] MEDS: TRIAMCINOLONE ACET 0.5% CR 15 GM TUBE EXT SCH ×2 (07:38→19:19)
[2016-09-10] MEDS: FLUTICASONE PROPIONATE NA SPR 16 GM BTL SCH (07:39)
[2016-09-10] MEDS: INSULIN GLARGINE SOLOSTAR 100 UNITS/ML 3 ML PEN SC SCH (07:44)
[2016-09-10] MEDS: INSULIN ASPART 100 UNITS/ML 3 ML PEN SC SCH ×4 (07:45→21:58)
[2016-09-10] MEDS ORDERED: LISINOPRIL 10 MG TAB PO SCH (10:00)
[2016-09-10] MEDS: MoRPHine SULFATE CR 15 MG TAB (MS CONTIN) PO SCH (10:04)
--- NOTE | 2016-09-10 10:30 | DIAGNOSTIC IMAGING REPORT ---
BILIARY ULTRASOUND CLINICAL HISTORY: Elevated liver enzymes COMPARISON STUDY: No previous studies for comparison. FINDINGS: The examination was performed in a portable fashion. The pancreas appears normal as visualized. No hepatic masses are visualized. There is no ductal dilatation. The common bile duct measures 6 mm. There is no right-sided hydronephrosis. The gallbladder surgically absent. There is a small right pleural effusion. IMPRESSION: 1. Surgically absent gallbladder 2. Ultrasonographically normal liver and pancreas. 3. No ductal dilatation 4. Small right pleural effusion Electronically signed by: Cristian Daniel M.D. 09/10/2016 10:29 AM Dictated Date/Time: 09/10/2016 10:27 AM
[2016-09-10] MEDS ORDERED: PERFLUTREN LIPID MICROSPHERE (DEFINITY) IV ONE (10:51)
[2016-09-10] MEDS: HYDROCODONE/ACETAMOPHEN 5/325MG TAB PO PRN (12:14)
--- NOTE | 2016-09-10 12:51 | ECHOCARDIOGRAM REPORT ---
*NOTICE TO RECEIVING REPUBLICAN AGENCY This information is strictly Confidential and protected under [place] law. [place] law prohibits you from making any further disclosure of this information unless further disclosure is expressly permitted by the written consent of the person to whom it pertains or is authorized by law. A general authorization for the release of medical or other information is not sufficient for this purpose. Hospital accepts no responsibility if the information is made available to any other person, INCLUDING THE PATIENT. Interpretation Summary * Name: LISA LIND Study Date: 09/10/2016 10:23 AM BP: 186/111 mmHg * Patient Location: .2E\S\E205\S\1 HR: 93 * : 1965 (M/d/yyyy) Gender: Female Height: 64 in * Age: 51 yrs Ethnicity: CA Weight: 170 lb * Ordering Physician: Annabel Van * Referring Physician: JANESSA CARABALLO * Performed By: Delilah Pineda RDCS * * Reason For Study: BACTEREMIA * BSA: 1.8 m2 * History: BACTEREMIA * -- Conclusions -- * The left ventricle is normal in size. * There is normal left ventricular wall thickness. * There is very mild hypokinesis of the apical septum with otherwise normal wall motion * Left ventricular systolic function is normal. * Ejection Fraction = 55-60%. * There is no significant valvular disease noted on transthoracic imaging Procedure Details * A contrast injection of Definity was performed to improve assessment of LV function. * Contrast was injected into an intravenous site in the left arm. * One vial of Definity ultrasound contrast was diluted in normal saline to a total volume of 10 ml. A total of '2' ml of solution was administered during imaging. * Lot # [id number] of Definity utilized for procedure. * Expiration date SEP 20. * The attending nurse who injected the contrast agent was RENATA BAPTISTE RN. * A complete two-dimensional transthoracic echocardiogram was performed (2D, M-mode, Doppler and color flow Doppler). Left Ventricle * The left ventricle is normal in size. * There is normal left ventricular wall thickness. * Ejection Fraction = 55-60%. * Left ventricular systolic function is normal. * There is very mild hypokinesis of the apical septum with otherwise normal wall motion Right Ventricle * The right ventricle is normal in size and function. Atria * The left atrial size is normal. * Right atrial size is normal. * No ASD detected; PFO is not assessed. Mitral Valve * The mitral valve anatomy is normal. * There is no mitral valve stenosis. * There is trace mitral regurgitation. Tricuspid Valve * The tricuspid valve anatomy is normal. * There is no tricuspid valve vegetation. * There is no tricuspid stenosis. * There is trace tricuspid regurgitation. Aortic Valve * The aortic valve is trileaflet. * There is no aortic valvular vegetation. * No hemodynamically significant valvular aortic stenosis. * No aortic regurgitation is present. Pulmonic Valve * The pulmonic valve is not well visualized. Great Vessels * The aortic root is normal size. Pericardium/Pleural * There is no pericardial effusion. Great Vessels * Normal inferior vena cava diameter and respiratory variation suggests normal central venous pressure. MMode 2D Measurements and Calculations IVSd 1.1 cm IVSs 1.4 cm LVIDd 3.9 cm LVIDs 2.9 cm LVPWd 1.3 cm LVPWs 1.7 cm IVS/LVPW 0.87 FS 25.8 % EDV(Teich) 67.9 ml ESV(Teich) 33.1 ml EF(Teich) 51.3 % EDV(cubed) 61.6 ml ESV(cubed) 25.2 ml EF(cubed) 59.1 % % IVS thick 19.1 % % LVPW thick 27.4 % LV mass(C)d 167.2 grams LV mass(C)dI 91.6 grams/m\S\2 LV mass(C)s 155.5 grams LV mass(C)sI 85.2 grams/m\S\2 SV(Teich) 34.8 ml SI(Teich) 19.1 ml/m\S\2 SV(cubed) 36.4 ml SI(cubed) 19.9 ml/m\S\2 Ao root diam 2.6 cm Ao root area 5.3 cm\S\2 LA dimension 3.4 cm LA/Ao 1.3 LVAd ap4 37.8 cm\S\2 LVLd ap4 9.8 cm EDV(MOD-sp4) 120.6 ml EDV(sp4-el) 123.0 ml LVAs ap4 23.6 cm\S\2 LVLs ap4 7.8 cm ESV(MOD-sp4) 57.1 ml ESV(sp4-el) 60.0 ml EF(MOD-sp4) 52.6 % EF(sp4-el) 51.2 % LVAd ap2 33.1 cm\S\2 LVLd ap2 9.2 cm EDV(MOD-sp2) 99.7 ml EDV(sp2-el) 100.4 ml LVAs ap2 20.9 cm\S\2 LVLs ap2 8.3 cm ESV(MOD-sp2) 45.1 ml ESV(sp2-el) 44.8 ml EF(MOD-sp2) 54.8 % EF(sp2-el) 55.3 % LVLd %diff -6.48 % EDV(MOD-bp) 113.1 ml LVLs %diff 5.5 % ESV(MOD-bp) 51.4 ml EF(MOD-bp) 54.5 % SV(MOD-sp4) 63.4 ml SI(MOD-sp4) 34.7 ml/m\S\2 SV(MOD-sp2) 54.6 ml SI(MOD-sp2) 29.9 ml/m\S\2 SV(MOD-bp) 61.7 ml SI(MOD-bp) 33.8 ml/m\S\2 SV(sp4-el) 63.0 ml SI(sp4-el) 34.5 ml/m\S\2 SV(sp2-el) 55.6 ml SI(sp2-el) 30.4 ml/m\S\2 Doppler Measurements and Calculations MV E max lloyd 95.6 cm/sec MV A max lloyd 88.8 cm/sec MV E/A 1.1 MV dec time 0.12 sec Ao V2 max 144.5 cm/sec Ao max PG 8.3 mmHg Ao max PG (full) 5.5 mmHg LV V1 max PG 2.8 mmHg LV V1 max 83.9 cm/sec TR max lloyd 232.2 cm/sec
[2016-09-10] MEDS: HydrALAZINE HCL 20 MG/ML VIAL IV. PRN (13:04)
[2016-09-10] MEDS ORDERED: FLUCONAZOLE / NSS 200 MG in PREMIXED NSS 100 ML IV SCH (16:00)
[2016-09-10] MEDS: VANCOMYCIN INJ 1,150 MG in SODIUM CHLORIDE 0.9% 250ML 250 ML IV SCH (16:46)
--- NOTE | 2016-09-10 18:13 | Progress Note ---
Medicine Progress Note Date & Time of Visit: Sep 10, 2016 at 17:59. Subjective Patient seen and examined. Has pain at right stump sight. Feels nauseated today. Objective Last 8 Hrs Date Time Temp Pulse Resp B/P Pulse Ox O2 Delivery O2 Flow Rate FiO2 09/10/16 14:59 36.7 91 10 161/85 95 2.0 09/10/16 12:00 Nasal Cannula 2.0 09/10/16 10:59 186/111 09/10/16 10:56 37.1 97 12 186/111 96 Nasal Cannula 2.0 Physical Exam: General-awake; alert; NAD Eyes-EOMI; no scleral icterus Neck-no stridor; trachea midline Lungs-CTA bilaterally; no wheezes/crackles Heart-RRR; no m/r/g Abdomen-soft; NTND; nBS Extremities-right stump bandage c/d/i Neuro-no focal deficits Laboratory Results: Last 24 Hours Test 09/09/16 19:35 09/09/16 20:13 09/09/16 20:15 09/10/16 02:33 Influenza Type A (RT-PCR) Neg for Influ A Influenza Type B (RT-PCR) Neg for Influ B Bedside Glucose 229 mg/dl 200 mg/dl Troponin I 0.459 ng/ml Test 09/10/16 04:45 09/10/16 06:44 09/10/16 11:27 09/10/16 16:16 White Blood Count 14.66 K/uL Red Blood Count 2.91 M/uL Hemoglobin 8.2 g/dL Hematocrit 26.0 % Mean Corpuscular Volume 89.3 fL Mean Corpuscular Hemoglobin 28.2 pg Mean Corpuscular Hemoglobin Concent 31.5 g/dl RDW Standard Deviation 51.0 fL RDW Coefficient of Variation 15.6 % Platelet Count 382 K/uL Mean Platelet Volume 12.7 fL Sodium Level 139 mmol/L Potassium Level 4.5 mmol/L Chloride Level 104 mmol/L Carbon Dioxide Level 28 mmol/L Anion Gap 7.0 mmol/L Blood Urea Nitrogen 23 mg/dl Creatinine 1.20 mg/dl Est Creatinine Clear Calc Drug Dose 57.0 ml/min Estimated GFR () 61.5 Estimated GFR (Non- 53.0 BUN/Creatinine Ratio 19.1 Random Glucose 169 mg/dl Estimated Average Glucose 226 mg/dl Hemoglobin A1c 9.5 % Calcium Level 8.6 mg/dl Magnesium Level 2.1 mg/dl Total Bilirubin 0.4 mg/dl Aspartate Amino Transf (AST/SGOT) 206 U/L Alanine Aminotransferase (ALT/SGPT) 235 U/L Alkaline Phosphatase 673 U/L Troponin I 0.319 ng/ml Total Protein 6.1 gm/dl Albumin 2.2 gm/dl Globulin 3.9 gm/dl Albumin/Globulin Ratio 0.6 Bedside Glucose 179 mg/dl 133 mg/dl 124 mg/dl Date/Time Source Procedure Growth Status 09/09/16 22:00 Stool C.difficile Toxin B Gene (PCR) - Final No C. difficile toxin B gene detected Complete Assessment & Plan Complicated 51 year old female discharged from [facility] to [facility] following right BKA for osteomyelitis, presented to the ED with confusion, fever, hypoxia. SEPSIS secondary to Health Care Associated Pneumonia -Presented with fever, confusion, tachycardia, hypoxia, leukocytosis, hyperglycemia, MABEL -Lactate <2, BP stable -Likely source: pneumonia -? aspiration component as patient had emesis prior -Blood cultures, sputum culture pending -Urine culture negative -Continue Zosyn, Vancomycin -ID consulted -C. diff toxin negative -Flu negative FUNGEMIA -Blood culture on 08/25 with areli albicans; repeat culture on 08/27 negative ( from [facility]) -ID consulted -Caspofungin changed to fluconazole per ID -Stop date would be 09/10 (will await negative cultures here prior to discontinuing) H/O OSTEOMYELITIS S/P RIGHT BKA -Amputation on 09/06 -Right heel wound culture with pansensitive pseudomonas (from [facility]) ACUTE BLOOD LOSS ANEMIA -secondary to Right BKA on 09/06 -transfused 1unit PRBC's ACUTE RENAL FAILURE -crea 1.7 on admission, baseline 1 -likely secondary to dehydration, sepsis -hold diuretics -received IVF hydration -resolved IDDM -with hyperglycemia on admission -insulin coverage -pharmacy consulted for glycemic control -A1c of 9.5 CAD -states she occasionally has intermittent chest pain -mild bump in troponin, likely demand in the setting of sepsis and anemia -EKG nonischemic -continue BB, Statin, Aspirin, lisinopril -TTE unremarkable HLD -continue statin HTN -stable -continue BB and resume lisinopril DEPRESSION -continue Prozac, Wellbutrin GERD -continue PPI, Carafate DVT PROPHYLAXIS: SCDs, RE: anemia CODE STATUS: FULL CODE Consultants: Infectious disease Procedures: TTE * The left ventricle is normal in size. * There is normal left ventricular wall thickness. * There is very mild hypokinesis of the apical septum with otherwise normal wall motion * Left ventricular systolic function is normal. * Ejection Fraction = 55-60%. * There is no significant valvular disease noted on transthoracic imaging Current Inpatient Medications: Current Inpatient Medications Medications (Trade) Dose Ordered Sig/Josseline Route Start Time Stop Time Status Last Admin Dose Admin Nitroglycerin (Nitrostat Tab) 0.4 mg UD PRN SL 09/09/16 09:45 10/09/16 09:44 Insulin Aspart (novoLOG ASPART) SLIDING SCALE If C... ACHS SC 09/09/16 13:30 10/09/16 13:29 09/10/16 16:50 4 UNITS Glucose (Glucose 40% Gel) 15-30 GRAMS 15 GRAMS... UD PRN PO 09/09/16 10:00 10/09/16 09:59 Glucose (Glucose Chew Tab) 4-8 Tablets 4 Tabl... UD PRN PO 09/09/16 10:00 10/09/16 09:59 Dextrose (Dextrose 50% 50ML Syringe) 25-50ML OF 50% DW IV FOR... UD PRN IV 09/09/16 10:00 10/09/16 09:59 Glucagon (Glucagon Inj) 1 mg UD PRN SQ 09/09/16 10:00 10/09/16 09:59 Miscellaneous Information (Consult Glycemic Management Pharmacy) 1 ea UD PRN N/A 09/09/16 11:47 10/09/16 11:46 Albuterol (Ventolin Hfa Inhaler) 2 puffs Q6H PRN INH 09/09/16 10:30 10/09/16 10:29 Aspirin (Ecotrin Tab) 81 mg DAILY PO 09/10/16 09:00 10/10/16 08:59 09/10/16 07:34 81 MG Atorvastatin Calcium (Lipitor Tab) 40 mg DAILY PO 09/10/16 09:00 10/10/16 08:59 09/10/16 07:36 40 MG Bupropion HCl (Wellbutrin-Sr Tab) 100 mg DAILY PO 09/10/16 09:00 10/10/16 08:59 09/10/16 07:36 100 MG Fluoxetine HCl (Prozac Cap) 60 mg DAILY PO 09/10/16 09:00 10/10/16 08:59 09/10/16 07:35 60 MG Fluticasone Propionate (Flonase Nasal Wharton) 2 sprays DAILY NA 09/10/16 09:00 10/10/16 08:59 09/10/16 07:39 2 SPRAYS Gabapentin (Neurontin Cap) 600 mg TID PO 09/09/16 14:00 10/09/16 13:59 09/10/16 14:43 600 MG Isosorbide Mononitrate (Imdur Ext Rel Tab) 30 mg QAM PO 09/10/16 09:00 10/10/16 08:59 09/10/16 07:35 30 MG Metoprolol Succinate (Toprol Xl Tab) 12.5 mg BID PO 09/09/16 21:00 10/09/16 20:59 09/10/16 07:37 12.5 MG Nystatin (Mycostatin Susp) 5 ml QID PO 09/09/16 13:00 09/19/16 12:59 09/10/16 16:47 5 ML Oxycodone HCl (Roxicodone Immediate Rel Tab) 5 mg Q4H PRN PO 09/09/16 10:30 09/23/16 10:29 09/10/16 13:05 5 MG Pantoprazole Sodium (Protonix Tab) 40 mg DAILY PO 09/10/16 09:00 10/10/16 08:59 09/10/16 07:35 40 MG Polyethylene (Miralax Powder Packet) 17 gm DAILY PRN PO 09/09/16 10:30 10/09/16 10:29 Prochlorperazine Maleate (Compazine Tab) 5 mg Q6H PRN PO 09/09/16 10:30 10/09/16 10:29 Senna/Docusate Sodium (Senokot S Tab) 1 tab BID PO 09/09/16 21:00 10/09/16 20:59 09/10/16 07:36 1 TAB Sucralfate (Carafate Tab) 1 gm ACHS PO 09/09/16 16:15 10/09/16 16:14 09/10/16 16:47 1 GM Triamcinolone Acetonide (Kenalog 0.5% Crm) 1 appln BID EXT 09/09/16 21:00 10/09/16 20:59 09/10/16 07:38 1 APPLN Cholecalciferol (Vitamin D Tab) 2,000 inter.unit DAILY PO 09/10/16 09:00 10/10/16 08:59 09/10/16 07:36 2,000 INTER.UNIT Ferrous Gluconate (Ferrous Gluconate Tab) 324 mg DAILY PO 09/10/16 09:00 10/10/16 08:59 09/10/16 07:37 324 MG Miscellaneous Information (Order Awaiting Action) 1 ea QS N/A 09/09/16 16:00 10/09/16 15:59 Acetaminophen/ Hydrocodone Bitart 1 tab 1 tab Q6H PRN PO 09/09/16 13:45 09/23/16 13:44 09/10/16 12:14 1 TAB Piperacillin Sod/ Tazobactam Sod/ Dextrose (Zosyn Iv/D5 100ml) 120 ml @ 30 mls/hr Q8H IV 09/09/16 14:00 09/11/16 07:59 09/10/16 14:44 30 MLS/HR Piperacillin Sod/ Tazobactam Sod (Consult) 1 ea UD PRN N/A 09/09/16 14:00 10/09/16 13:59 Vancomycin HCl (Consult) 1 ea UD PRN N/A 09/09/16 14:00 10/09/16 13:59 Fluconazole 1 ea 1 ea UD PRN N/A 09/09/16 15:00 10/09/16 14:59 Fluconazole/ Sodium Chloride 200 mg/Prmx 100 ml @ 100 mls/hr Q24H IV 09/10/16 16:00 09/24/16 15:59 09/10/16 16:46 100 MLS/HR Vancomycin HCl/ Sodium Chloride (Vancomycin Inj/ Nss 250ml) 273 ml @ 125 mls/hr DAILY@1600 IV 09/09/16 16:15 09/23/16 16:14 09/10/16 16:46 125 MLS/HR Lisinopril (Zestril Tab) 10 mg QAM PO 09/10/16 10:00 10/10/16 09:59 09/10/16 10:04 10 MG Morphine Sulfate (Oramorph Sr Tab) 15 mg DAILY PO 09/10/16 10:00 09/24/16 09:59 09/10/16 10:04 15 MG Hydralazine HCl (HydrALAZINE INJ) 5 mg Q6 PRN IV. 09/10/16 12:45 10/10/16 12:44 09/10/16 13:04 5 MG Insulin Glargine (Lantus Solostar Pen) 12 unit BID SC 09/10/16 21:00 10/10/16 20:59
[2016-09-10] MEDS ORDERED: INSULIN GLARGINE SOLOSTAR 100 UNITS/ML 3 ML PEN SC SCH (21:00)
[2016-09-11] VITALS (8 sets, daily range): BP systolic 145–194; BP diastolic 82–101; PULSE 82–94; TEMP 36.6–36.8; O2SAT 92–98
[2016-09-11] MEDS: OXYCODONE HCL IR 5 MG TAB (IMMEDIATE RELEASE) PO PRN ×4 (04:02→19:20)
[2016-09-11] MEDS: HydrALAZINE HCL 20 MG/ML VIAL IV. PRN (04:36)
[2016-09-11] MEDS: PIPERACILL/TAZOBAC IV 4.5 GM in DEXTROSE 5% 100ML IV SCH ×3 (06:01→22:21)
[2016-09-11 06:10] LABS: HEMATOCRIT 26.9 % (37-47); MEAN CELL VOLUME 87.3 fL (80-100); MEAN CORPUSCULAR HEMOGLOBIN 27.6 pg (25-34); MEAN CORPUSCULAR HGB CONC 31.6 g/dl (32-36); MEAN PLATELET VOLUME 12.2 fL (7.4-10.4); PLATELET COUNT 441 K/uL (130-400); RED BLOOD COUNT 3.08 M/uL (4.2-5.4)
[2016-09-11] MEDS: INSULIN ASPART 100 UNITS/ML 3 ML PEN SC SCH ×4 (07:00→21:28)
[2016-09-11 07:18] LABS: ALB/GLOB RATIO 0.5 (0.9-2); BUN/CREATININE RATIO 16.8 (10-20); CALCIUM 9.4 mg/dl (8.5-10.1); CREATININE 1.2 mg/dl (0.60-1.20); POTASSIUM 4.2 mmol/L (3.5-5.1)
[2016-09-11] MEDS: SUCRALFATE 1 GM TAB PO SCH ×4 (08:08→19:23)
[2016-09-11] MEDS: ASPIRIN 81 MG ECTAB PO SCH (08:09)
[2016-09-11] MEDS: FLUTICASONE PROPIONATE NA SPR 16 GM BTL SCH (08:09)
[2016-09-11] MEDS: TRIAMCINOLONE ACET 0.5% CR 15 GM TUBE EXT SCH ×2 (08:09→19:21)
[2016-09-11] MEDS: METOCLOPRAMIDE HCL 5 MG TAB PO SCH ×3 (08:10→16:01)
[2016-09-11] MEDS: FERROUS GLUCONATE 324 MG TAB PO SCH (08:10)
[2016-09-11] MEDS: ISOSORBIDE MONONITRATE 30 MG TABCR PO SCH (08:11)
[2016-09-11] MEDS: ATORVASTATIN 40 MG TAB PO SCH (08:12)
[2016-09-11] MEDS: NYSTATIN SUSP 500,000 U/5 ML UDC PO SCH ×4 (08:12→19:26)
[2016-09-11] MEDS: GABAPENTIN 300 MG CAP PO SCH ×3 (08:13→19:22)
[2016-09-11] MEDS: PANTOprazole SOD 40 MG TAB PO SCH (08:13)
[2016-09-11] MEDS: FLUOXETINE HCL 20 MG CAP PO SCH (08:14)
[2016-09-11] MEDS: DOCUSATE SODIUM/SENNA 50/8.6MG TAB PO SCH ×2 (08:14→19:22)
[2016-09-11] MEDS: METOPROLOL SUCC 25MG EXT REL TAB PO SCH ×2 (08:15→19:24)
[2016-09-11] MEDS: CHOLECALCIFEROL 1000 INTER.UNIT TAB PO SCH (08:15)
[2016-09-11] MEDS: BuPROPion SR 100 MG TABCR PO SCH (08:16)
[2016-09-11] MEDS: MoRPHine SULFATE CR 15 MG TAB (MS CONTIN) PO SCH (08:30)
[2016-09-11] MEDS ORDERED: SODIUM CHLORIDE 0.65% NA SOLN 45 ML (OCEAN) PRN (08:30)
[2016-09-11] MEDS ORDERED: NURSING VERBAL MED ORDER ONE (08:30)
[2016-09-11] MEDS ORDERED: SODIUM CHLORIDE 0.65% NA SOLN 45 ML (OCEAN) ONE (08:31)
[2016-09-11] MEDS: INSULIN GLARGINE SOLOSTAR 100 UNITS/ML 3 ML PEN SC SCH ×2 (08:32→21:29)
[2016-09-11] MEDS ORDERED: LISINOPRIL 20 MG TAB PO SCH (09:00)
[2016-09-11] MEDS ORDERED: INSULIN GLARGINE SOLOSTAR 100 UNITS/ML 3 ML PEN SC SCH (09:00)
--- NOTE | 2016-09-11 10:08 | Pharmacy Progress Note ---
Glycemic Control: Progress Nt Date of Service Sep 11, 2016. Scope Glycemic Pharmacist consulted by Lauren Harrell PA-C on 09/09/16 for glycemic control and to write orders per [facility] inpatient glycemic control protocol. Objective Accuchecks BSG (last 24hrs): Test 09/10/16 11:27 09/10/16 16:16 09/10/16 20:25 09/11/16 05:54 Bedside Glucose 133 mg/dl (70-90) 124 mg/dl (70-90) 161 mg/dl (70-90) Random Glucose 201 mg/dl (70-99) Test 09/11/16 06:59 Bedside Glucose 188 mg/dl (70-90) Laboratory Data (last 24hrs) Test 09/11/16 05:54 Anion Gap 5.0 mmol/L BUN/Creatinine Ratio 16.8 Blood Urea Nitrogen 20 mg/dl Creatinine 1.20 mg/dl Potassium Level 4.2 mmol/L Sodium Level 137 mmol/L White Blood Count 12.10 K/uL HbA1c: Test 09/10/16 04:45 Hemoglobin A1c 9.5 % (4.5-5.6) H Recent Pertinent Medications Outpatient Anti-diabetic Regimen: * Lantus 16 units BID * Novolog 3 units w breakfast and lunch * Novolog 6 units w dinner * For BSG>150, use correction factor of 25 mg/dL/unit * A1c unavailable - on order with AM labs Risk Factors for Insulin Resistance: * Infection * Recent Surgery * Diet Assessment & Plan ASSESSMENT: 09/09/16 * 51 yo F admitted with sepsis secondary to HCAP, BSGs >300 mg/dL in the ED * 8 units of Regular insulin IV given X 1 in ED @0900, Repeat BSG unavailable * Recent A1c unavailable to assess baseline resistance * Pt likely missed insulin doses this AM given ED admission time- give home dose of Lantus as soon as patient admitted * Initiate weight-based Novolog, stress of 2 and reassess in the AM * ADA & AACE recommend a goal blood sugar range 140-180 mg/dl for the majority of critically ill & non-critically ill patients. However, more stringent targets may be selected in individual cases. Will utilize more stringent goal of 110-150mg/dl based on patient age & comorbidities. Additionally, tighter glycemic control is warranted to facilitate wound/infection healing. 09/11/16 * Patient is currently receiving an average of 40-50 units of insulin per day * 28-32 units of basal insulin * 15 units of prandial/correctional insulin * BSGs ranging 124 - 200 mg/dL over the past 24hrs * AM Fasting BSG = 188 * I originally thought patient would not tolerate home dose of Lantus so I had switched to 12 units last night; however, on second thought I don't think a change is warranted just yet. Continue current basal dose until BSG indicates change. * Post-prandial BSGs continue to be within goal range after I loosened CF/CR yesterday- continue and reassess in AM * A1c drawn with AM labs yesterday indicative of suboptimal outpatient glycemic control. PLAN FOR INPATIENT GLYCEMIC CONTROL: * Basal insulin with LANTUS 16 units SQ BID * Correctional Insulin with NOVOLOG per scale ACHS * Goal Range: Low 110 mg/dL - High 150 mg/dL * Correction Factor: 35 mg/dL/unit * Nutritional / Prandial insulin per carb ratio of 1 unit per 12 grams CHO consumed * A1c to be added to D/C * Please note that the plan above was derived based on current level of insulin resistance and hospital stress. These recommendations are appropriate for inpatient admission only. Plan of care upon discharge will need to be reassessed to avoid potential outpatient hypo/hyperglycemia. Thank you.
[2016-09-11] MEDS: HYDROCODONE/ACETAMOPHEN 5/325MG TAB PO PRN (11:34)
[2016-09-11] MEDS ORDERED: BUTALBITAL/ACETAMIN/CAFFEINE TAB PO STA (11:40)
--- NOTE | 2016-09-11 14:52 | Progress Note ---
Medicine Progress Note Date & Time of Visit: Sep 11, 2016 at 14:46. Subjective Patient seen and examined. Notes that she has a migraine today. Objective Last 8 Hrs Date Time Temp Pulse Resp B/P Pulse Ox O2 Delivery O2 Flow Rate FiO2 09/11/16 11:18 36.8 88 8 150/85 98 Nasal Cannula 2.0 09/11/16 07:03 36.8 94 17 164/96 92 Room Air Physical Exam: General-awake; alert; NAD Eyes-EOMI; no scleral icterus Neck-no stridor; trachea midline Lungs-CTA bilaterally; no wheezes/crackles Heart-RRR; no m/r/g Abdomen-soft; NTND; nBS Extremities-right stump incision/angelica c/d/i Neuro-no focal deficits Laboratory Results: Last 24 Hours Test 09/10/16 16:16 09/10/16 20:25 09/11/16 05:54 09/11/16 06:59 Bedside Glucose 124 mg/dl 161 mg/dl 188 mg/dl White Blood Count 12.10 K/uL Red Blood Count 3.08 M/uL Hemoglobin 8.5 g/dL Hematocrit 26.9 % Mean Corpuscular Volume 87.3 fL Mean Corpuscular Hemoglobin 27.6 pg Mean Corpuscular Hemoglobin Concent 31.6 g/dl RDW Standard Deviation 48.6 fL RDW Coefficient of Variation 15.2 % Platelet Count 441 K/uL Mean Platelet Volume 12.2 fL Sodium Level 137 mmol/L Potassium Level 4.2 mmol/L Chloride Level 98 mmol/L Carbon Dioxide Level 34 mmol/L Anion Gap 5.0 mmol/L Blood Urea Nitrogen 20 mg/dl Creatinine 1.20 mg/dl Est Creatinine Clear Calc Drug Dose 56.6 ml/min Estimated GFR () 61.5 Estimated GFR (Non- 53.0 BUN/Creatinine Ratio 16.8 Random Glucose 201 mg/dl Calcium Level 9.4 mg/dl Total Bilirubin 0.4 mg/dl Aspartate Amino Transf (AST/SGOT) 62 U/L Alanine Aminotransferase (ALT/SGPT) 171 U/L Alkaline Phosphatase 649 U/L Total Protein 6.5 gm/dl Albumin 2.2 gm/dl Globulin 4.3 gm/dl Albumin/Globulin Ratio 0.5 Test 09/11/16 11:22 Bedside Glucose 134 mg/dl Assessment & Plan Complicated 51 year old female discharged from [facility] to [facility] following right BKA for osteomyelitis, presented to the ED with confusion, fever, hypoxia. SEPSIS secondary to Health Care Associated Pneumonia -Presented with fever, confusion, tachycardia, hypoxia, leukocytosis, hyperglycemia, MABEL -Lactate <2, BP stable -Likely source: pneumonia -? aspiration component as patient had emesis prior -Blood cultures negative -Sputum culture pending -Urine culture negative -Continue Zosyn, Vancomycin -ID consulted -C. diff toxin negative -Flu negative FUNGEMIA -Blood culture on 08/25 with areli albicans; repeat culture on 08/27 negative ( from [place]) -ID consulted -Caspofungin changed to fluconazole per ID --> discontinued as patient has completed course and cultures here are negative H/O OSTEOMYELITIS S/P RIGHT BKA -Amputation on 09/06 -Right heel wound culture with pansensitive pseudomonas (from [place]) ACUTE BLOOD LOSS ANEMIA -secondary to Right BKA on 09/06 -transfused 1unit PRBC's -Hgb stable ACUTE RENAL FAILURE -crea 1.7 on admission, baseline 1 -likely secondary to dehydration, sepsis -hold diuretics -received IVF hydration -resolved TRANSAMINITIS -possibly related to medications -liver ultrasound unremarkable -downtrending IDDM -with hyperglycemia on admission -insulin coverage -pharmacy consulted for glycemic control -A1c of 9.5 CAD -states she occasionally has intermittent chest pain -mild bump in troponin, likely demand in the setting of sepsis and anemia -EKG nonischemic -continue BB, Statin, Aspirin, lisinopril -TTE unremarkable HLD -continue statin HTN -above goal -continue BB -increase lisinopril DEPRESSION -continue Prozac, Wellbutrin GERD -continue PPI, Carafate DVT PROPHYLAXIS: SCDs, RE: anemia CODE STATUS: FULL CODE Anticipate discharge to [facility] when medically stable. Consultants: Infectious disease Procedures: TTE * The left ventricle is normal in size. * There is normal left ventricular wall thickness. * There is very mild hypokinesis of the apical septum with otherwise normal wall motion * Left ventricular systolic function is normal. * Ejection Fraction = 55-60%. * There is no significant valvular disease noted on transthoracic imaging Current Inpatient Medications: Current Inpatient Medications Medications (Trade) Dose Ordered Sig/Josseline Route Start Time Stop Time Status Last Admin Dose Admin Nitroglycerin (Nitrostat Tab) 0.4 mg UD PRN SL 09/09/16 09:45 10/09/16 09:44 Insulin Aspart (novoLOG ASPART) SLIDING SCALE If C... ACHS SC 09/09/16 13:30 10/09/16 13:29 09/11/16 07:00 3 UNITS Glucose (Glucose 40% Gel) 15-30 GRAMS 15 GRAMS... UD PRN PO 09/09/16 10:00 10/09/16 09:59 Glucose (Glucose Chew Tab) 4-8 Tablets 4 Tabl... UD PRN PO 09/09/16 10:00 10/09/16 09:59 Dextrose (Dextrose 50% 50ML Syringe) 25-50ML OF 50% DW IV FOR... UD PRN IV 09/09/16 10:00 10/09/16 09:59 Glucagon (Glucagon Inj) 1 mg UD PRN SQ 09/09/16 10:00 10/09/16 09:59 Miscellaneous Information (Consult Glycemic Management Pharmacy) 1 ea UD PRN N/A 09/09/16 11:47 10/09/16 11:46 Albuterol (Ventolin Hfa Inhaler) 2 puffs Q6H PRN INH 09/09/16 10:30 10/09/16 10:29 Aspirin (Ecotrin Tab) 81 mg DAILY PO 09/10/16 09:00 10/10/16 08:59 09/11/16 08:09 81 MG Atorvastatin Calcium (Lipitor Tab) 40 mg DAILY PO 09/10/16 09:00 10/10/16 08:59 09/11/16 08:12 40 MG Bupropion HCl (Wellbutrin-Sr Tab) 100 mg DAILY PO 09/10/16 09:00 10/10/16 08:59 09/11/16 08:16 100 MG Fluoxetine HCl (Prozac Cap) 60 mg DAILY PO 09/10/16 09:00 10/10/16 08:59 09/11/16 08:14 60 MG Fluticasone Propionate (Flonase Nasal [place]) 2 sprays DAILY NA 09/10/16 09:00 10/10/16 08:59 09/11/16 08:09 2 SPRAYS Gabapentin (Neurontin Cap) 600 mg TID PO 09/09/16 14:00 5/7/17 13:59 09/11/16 13:54 600 MG Isosorbide Mononitrate (Imdur Ext Rel Tab) 30 mg QAM PO 09/10/16 09:00 10/10/16 08:59 09/11/16 08:11 30 MG Metoprolol Succinate (Toprol Xl Tab) 12.5 mg BID PO 09/09/16 21:00 10/09/16 20:59 09/11/16 08:15 12.5 MG Nystatin (Mycostatin Susp) 5 ml QID PO 09/09/16 13:00 09/19/16 12:59 09/11/16 11:40 5 ML Oxycodone HCl (Roxicodone Immediate Rel Tab) 5 mg Q4H PRN PO 09/09/16 10:30 09/23/16 10:29 09/11/16 13:52 5 MG Pantoprazole Sodium (Protonix Tab) 40 mg DAILY PO 09/10/16 09:00 10/10/16 08:59 09/11/16 08:13 40 MG Polyethylene (Miralax Powder Packet) 17 gm DAILY PRN PO 09/09/16 10:30 10/09/16 10:29 Prochlorperazine Maleate (Compazine Tab) 5 mg Q6H PRN PO 09/09/16 10:30 10/09/16 10:29 Senna/Docusate Sodium (Senokot S Tab) 1 tab BID PO 09/09/16 21:00 10/09/16 20:59 09/11/16 08:14 1 TAB Sucralfate (Carafate Tab) 1 gm ACHS PO 09/09/16 16:15 10/09/16 16:14 09/11/16 11:39 1 GM Triamcinolone Acetonide (Kenalog 0.5% Crm) 1 appln BID EXT 09/09/16 21:00 10/09/16 20:59 09/11/16 08:09 1 APPLN Cholecalciferol (Vitamin D Tab) 2,000 inter.unit DAILY PO 09/10/16 09:00 10/10/16 08:59 09/11/16 08:15 2,000 INTER.UNIT Ferrous Gluconate (Ferrous Gluconate Tab) 324 mg DAILY PO 09/10/16 09:00 5/8/17 08:59 09/11/16 08:10 324 MG Miscellaneous Information (Order Awaiting Action) 1 ea QS N/A 09/09/16 16:00 10/09/16 15:59 Acetaminophen/ Hydrocodone Bitart ([place] 5/325 Tab) 1 tab Q6H PRN PO 09/09/16 13:45 09/23/16 13:44 09/11/16 11:34 1 TAB Piperacillin Sod/ Tazobactam Sod (Consult) 1 ea UD PRN N/A 09/09/16 14:00 10/09/16 13:59 Vancomycin HCl 1 ea 1 ea UD PRN N/A 09/09/16 14:00 10/09/16 13:59 Vancomycin HCl/ Sodium Chloride (Vancomycin Inj/ Nss 250ml) 273 ml @ 125 mls/hr DAILY@1600 IV 09/09/16 16:15 09/23/16 16:14 09/10/16 16:46 125 MLS/HR Morphine Sulfate (Oramorph Sr Tab) 15 mg DAILY PO 09/10/16 10:00 09/24/16 09:59 09/11/16 08:30 15 MG Hydralazine HCl (HydrALAZINE INJ) 5 mg Q6 PRN IV. 09/10/16 12:45 10/10/16 12:44 09/11/16 04:36 5 MG Metoclopramide HCl (Reglan Tab) 5 mg AC PO 09/11/16 07:00 10/11/16 06:59 09/11/16 11:39 5 MG Insulin Glargine (Lantus Solostar Pen) 16 unit BID SC 09/11/16 09:00 10/11/16 08:59 09/11/16 08:32 16 UNIT Lisinopril (Zestril Tab) 20 mg QAM PO 09/11/16 09:00 10/11/16 08:59 09/11/16 08:30 20 MG Sodium Chloride 1 sprays 1 sprays PRN PRN NA 09/11/16 08:30 10/11/16 08:29 09/11/16 11:35 1 SPRAYS Piperacillin Sod/ Tazobactam Sod/ Dextrose (Zosyn Iv/D5 100ml) 120 ml @ 30 mls/hr Q8H IV 09/11/16 14:00 09/23/16 13:59 09/11/16 13:53 30 MLS/HR
[2016-09-11] MEDS ORDERED: VANCOMYCIN TROUGH SCH (15:30)
[2016-09-11] MEDS: VANCOMYCIN INJ 1,150 MG in SODIUM CHLORIDE 0.9% 250ML 250 ML IV SCH (16:00)
--- NOTE | 2016-09-11 21:31 | Pharmacy Progress Note ---
Pharmacy Antibiotic Prog Note Date of Service Sep 11, 2016. Subjective The patient is currently receiving Vancomycin 1150 mg (~15mg/kg) IV every 24 hours for bacteremia. The patient is currently on day # 3/10 of Vancomycin IV therapy. Objective Height (Feet): 5 Height (Inches): 4.00 Weight (Kilograms): 76.000 Levels: Item Value Date Time Vancomycin Level Trough 10.0 mcg/ml 09/11/16 1538 Lab Results (24hrs): Laboratory Tests Test 09/11/16 05:54 BUN/Creatinine Ratio 16.8 Blood Urea Nitrogen 20 mg/dl Creatinine 1.20 mg/dl White Blood Count 12.10 K/uL Micro Results: Item Value Date Time C.difficile Toxin B Gene (PCR) - Final Complete 09/09/16 2200 Stool No C. difficile toxin B gene detected Blood Culture - Preliminary Resulted 09/09/16 0825 Blood NO GROWTH TO DATE. Blood Culture - Preliminary Resulted 09/09/16 0755 Blood NO GROWTH TO DATE. Urine Culture - Final Complete 09/09/16 0743 Urine,Catheterized NO GROWTH - LESS THAN 1,000 COLONIES/ML Recent Pertinent Medications Item Value Date Time Caspofungin 50 mg/ 260 ml @ 250 mls/hr 09/09/16 0915 Sodium Chloride NOW STAT/IV 09/09/16 0940 Fluconazole/ 100 ml @ 100 mls/hr 09/09/16 1500 Sodium Chloride 1500,1600,1700,1800/IV 09/09/16 1857 200 mg/Prmx Fluconazole/ 100 ml @ 100 mls/hr 09/10/16 1600 Sodium Chloride Q24H/IV 09/10/16 1646 200 mg/Prmx Piperacillin Sod/ 4.5 gm 09/09/16 0745 Tazobactam Sod ONE STAT/IV 09/09/16 0842 (Zosyn Iv) PHARMACY CONSULT Piperacillin Sod/ 120 ml @ 30 mls/hr 09/09/16 1400 Tazobactam Sod Q8H/IV 09/11/16 0601 4.5 gm/Dextrose PHARMACY CONSULT Piperacillin Sod/ 120 ml @ 30 mls/hr 09/11/16 1400 Tazobactam Sod Q8H/IV 09/11/16 1353 4.5 gm/Dextrose PHARMACY CONSULT Vancomycin HCl 273 ml @ 125 mls/hr 09/09/16 1615 1150 mg/Sodium DAILY@1600/IV 09/11/16 1600 Chloride PHARMACY CONSULT Assessment & Plan Pharmacy has been consulted to dose and monitor Vancomycin for bacteremia. Vancomycin trough level of 10mcg/mL is: Subtherapeutic Change to Vancomycin 1250 mg (~16.5mg/kg) IV every 18 hours. * Patient's renal function returned to baseline (1.7mg/dL upon admission --> 1.2mg/dL on 09/11/16); therefore, patient metabolizing Vancomycin more rapidly. * Estimated P'kinetic levels using new/baseline renal function: ke= 0.0514/hr, t1/2= 13.5 hrs * Goal trough level estimate: between 15 - 20 mcg/mL. * Trough level has been ordered for: ~30 minutes before the 1600 dose when the new dosing regimen will have reached steady state. Pharmacy will continue to follow and will adjust dose/frequency as necessary. Thank you
[2016-09-12] VITALS (7 sets, daily range): BP systolic 126–184; BP diastolic 78–99; PULSE 75–96; TEMP 36.5–36.9; O2SAT 90–98; Ht 162.6 cm; Wt 70.2 kg
[2016-09-12] MEDS: HydrALAZINE HCL 20 MG/ML VIAL IV. PRN (03:38)
[2016-09-12] MEDS: OXYCODONE HCL IR 5 MG TAB (IMMEDIATE RELEASE) PO PRN ×5 (04:04→21:57)
[2016-09-12] MEDS: HYDROCODONE/ACETAMOPHEN 5/325MG TAB PO PRN ×3 (04:55→16:22)
[2016-09-12] MEDS: PIPERACILL/TAZOBAC IV 4.5 GM in DEXTROSE 5% 100ML IV SCH ×3 (04:58→21:56)
[2016-09-12 06:28] LABS: HEMATOCRIT 29.5 % (37-47); MEAN CELL VOLUME 88.9 fL (80-100); MEAN CORPUSCULAR HGB CONC 31.5 g/dl (32-36); MEAN PLATELET VOLUME 12.6 fL (7.4-10.4); PLATELET COUNT 491 K/uL (130-400); RED BLOOD COUNT 3.32 M/uL (4.2-5.4); WHITE BLOOD COUNT 8.44 K/uL (4.8-10.8)
[2016-09-12 07:03] LABS: BUN/CREATININE RATIO 16.2 (10-20); CALCIUM 9.2 mg/dl (8.5-10.1); CREATININE 1.2 mg/dl (0.60-1.20)
[2016-09-12 07:06] LABS: ALB/GLOB RATIO 0.5 (0.9-2)
[2016-09-12] MEDS: METOPROLOL SUCC 25MG EXT REL TAB PO SCH ×2 (08:59→20:46)
[2016-09-12] MEDS: ISOSORBIDE MONONITRATE 30 MG TABCR PO SCH (08:59)
[2016-09-12] MEDS: ATORVASTATIN 40 MG TAB PO SCH (09:00)
[2016-09-12] MEDS: FLUOXETINE HCL 20 MG CAP PO SCH (09:00)
[2016-09-12] MEDS: INSULIN GLARGINE SOLOSTAR 100 UNITS/ML 3 ML PEN SC SCH ×2 (09:00→21:00)
[2016-09-12] MEDS: METOCLOPRAMIDE HCL 5 MG TAB PO SCH ×4 (09:00→18:12)
[2016-09-12] MEDS: SUCRALFATE 1 GM TAB PO SCH ×5 (09:00→20:41)
[2016-09-12] MEDS: NYSTATIN SUSP 500,000 U/5 ML UDC PO SCH ×4 (09:00→20:41)
[2016-09-12] MEDS: BuPROPion SR 100 MG TABCR PO SCH (09:00)
[2016-09-12] MEDS: ASPIRIN 81 MG ECTAB PO SCH (09:00)
[2016-09-12] MEDS: GABAPENTIN 300 MG CAP PO SCH ×3 (09:00→20:48)
[2016-09-12] MEDS: INSULIN ASPART 100 UNITS/ML 3 ML PEN SC SCH ×4 (09:00→20:59)
[2016-09-12] MEDS: PANTOprazole SOD 40 MG TAB PO SCH (09:01)
[2016-09-12] MEDS: DOCUSATE SODIUM/SENNA 50/8.6MG TAB PO SCH ×2 (09:01→20:43)
[2016-09-12] MEDS: CHOLECALCIFEROL 1000 INTER.UNIT TAB PO SCH (09:01)
[2016-09-12] MEDS: FERROUS GLUCONATE 324 MG TAB PO SCH (09:01)
[2016-09-12] MEDS: FLUTICASONE PROPIONATE NA SPR 16 GM BTL SCH (09:02)
[2016-09-12] MEDS: TRIAMCINOLONE ACET 0.5% CR 15 GM TUBE EXT SCH ×2 (09:02→20:46)
--- NOTE | 2016-09-12 09:15 | Pharmacy Progress Note ---
Glycemic Control: Progress Nt Date of Service Sep 12, 2016. Scope Glycemic Pharmacist consulted by TATYANA Strong on 09/09 for glycemic control and to write orders per [facility] inpatient glycemic control protocol. Objective Accuchecks BSG (last 24hrs): Test 09/11/16 11:22 09/11/16 16:01 09/11/16 20:28 09/12/16 05:32 Bedside Glucose 134 mg/dl (70-90) 197 mg/dl (70-90) 183 mg/dl (70-90) Random Glucose 225 mg/dl (70-99) Test 09/12/16 06:27 Bedside Glucose 198 mg/dl (70-90) Laboratory Data (last 24hrs) Test 09/12/16 05:32 Anion Gap 7.0 mmol/L BUN/Creatinine Ratio 16.2 Blood Urea Nitrogen 19 mg/dl Creatinine 1.20 mg/dl Potassium Level 4.0 mmol/L Sodium Level 136 mmol/L White Blood Count 8.44 K/uL HbA1c: Test 09/10/16 04:45 Hemoglobin A1c 9.5 % (4.5-5.6) H Recent Pertinent Medications Outpatient Anti-diabetic Regimen: * Lantus 16 units BID * Novolog 3 units w breakfast and lunch * Novolog 6 units w dinner * For BSG>150, use correction factor of 25 mg/dL/unit The patient is currently receiving: * Basal insulin: Lantus 16 units every 12 hours * Correctional Insulin: Novolog Correction per scale ACHS Goal Range: Low 110 mg/dL - High 150 mg/dL Correction Factor: 35 mg/dL/unit * Prandial insulin: Per carb ratio of 1 unit per 12 grams CHO consumed Risk Factors for Insulin Resistance: * Infection: sepsis - on vanc and Zosyn * Diet: type 2 diabetes - consuming varying amts of CHO with each meal Assessment & Plan ASSESSMENT: 09/11/16 * Patient is currently receiving an average of 40-50 units of insulin per day * 28-32 units of basal insulin * 15 units of prandial/correctional insulin * BSGs ranging 124 - 200 mg/dL over the past 24hrs * AM Fasting BSG = 188 * I originally thought patient would not tolerate home dose of Lantus so I had switched to 12 units last night; however, on second thought I don't think a change is warranted just yet. Continue current basal dose until BSG indicates change. * Post-prandial BSGs continue to be within goal range after I loosened CF/CR yesterday- continue and reassess in AM * A1c drawn with AM labs yesterday indicative of suboptimal outpatient glycemic control. 09/12/16 * Ms. Lorenzo received 44 units of insulin yesterday with BSGs ranging from 134-225 mg/dL * Fasting BSG remains elevated but pt received more basal yesterday compared to the previous day - will wait until tomorrow to make adjustments to this * I would like to tighten the CF slightly and add an overnight accucheck to help determine appropriate basal dose * Current CR seems to work well so will not make adjustments with this yet PLAN FOR INPATIENT GLYCEMIC CONTROL: * Continue Lantus 16 units BID * Continue Novolog ACHS, ADD 0200 accucheck * Goal 110-150 mg/dL * TIGHTEN CF 30 mg/dL/unit * Continue CR 1 unit per 12 gm CHO consumed RECOMMENDATIONS FOR DISCHARGE: * A1c well above goal - need to determine compliance prior to recommending appropriate d/c regimen * Please note that the plan above was derived based on current level of insulin resistance and hospital stress. These recommendations are appropriate for inpatient admission only. Plan of care upon discharge will need to be reassessed to avoid potential outpatient hypo/hyperglycemia. Thank you.
[2016-09-12] MEDS: MoRPHine SULFATE CR 15 MG TAB (MS CONTIN) PO SCH (09:16)
[2016-09-12] MEDS: LISINOPRIL 40 MG TAB PO SCH (09:18)
[2016-09-12] MEDS: VANCOMYCIN INJ 1,250 MG in SODIUM CHLORIDE 0.9% 250ML 250 ML IV SCH (10:48)
--- NOTE | 2016-09-12 11:00 | Progress Note ---
Subjective Date of Service: Sep 12, 2016. Subjective pt not in room, cultures negative, cxr with infiltrate. LFTs improving, antifungals stopped. remains on vanco and zosyn for suspected aspiration pna. afebrile. wbc improved. echo negative for veg. Problem List Medical Problems: (1) Anemia Status: Acute (2) Change in mental status Status: Acute (3) Headache Status: Acute (4) History of transient ischemic attack Status: Acute (5) Left sided numbness Status: Acute (6) Pneumonia Status: Acute (7) Sepsis Status: Acute Objective Vital Signs Date Time Temp Pulse Resp B/P Pulse Ox O2 Delivery O2 Flow Rate FiO2 09/12/16 10:34 36.8 96 12 156/87 96 Room Air 09/12/16 08:06 36.9 96 9 159/84 90 Room Air 09/12/16 04:14 165/91 09/12/16 04:11 Room Air 09/12/16 03:36 36.9 93 17 184/99 94 Room Air 09/12/16 00:00 Room Air 09/11/16 23:22 36.8 89 18 161/91 94 Room Air 09/11/16 20:00 Room Air 09/11/16 18:57 36.6 82 15 148/86 98 Nasal Cannula 2.0 09/11/16 16:00 Nasal Cannula 2.0 09/11/16 16:00 36.7 82 16 145/82 98 Nasal Cannula 2.0 09/11/16 14:51 36.7 82 13 145/82 98 Nasal Cannula 2.0 09/11/16 12:00 Nasal Cannula 2.0 09/11/16 11:18 36.8 88 16 150/85 98 Nasal Cannula 2.0 Laboratory Results Item Value Date Time Blood Culture - Preliminary Resulted 09/09/16 0755 Blood NO GROWTH TO DATE. Urine Culture - Final Complete 09/09/16 0743 Urine,Catheterized NO GROWTH - LESS THAN 1,000 COLONIES/ML Blood Culture - Preliminary Resulted 09/09/16 0825 Blood NO GROWTH TO DATE. C.difficile Toxin B Gene (PCR) - Final Complete 09/09/16 2200 Stool No C. difficile toxin B gene detected Last 24 Hours Test 09/11/16 11:22 09/11/16 15:38 09/11/16 16:01 09/11/16 20:28 Bedside Glucose 134 mg/dl 197 mg/dl 183 mg/dl Vancomycin Level Trough 10.0 mcg/ml Test 09/12/16 05:32 09/12/16 06:27 White Blood Count 8.44 K/uL Red Blood Count 3.32 M/uL Hemoglobin 9.3 g/dL Hematocrit 29.5 % Mean Corpuscular Volume 88.9 fL Mean Corpuscular Hemoglobin 28.0 pg Mean Corpuscular Hemoglobin Concent 31.5 g/dl RDW Standard Deviation 49.7 fL RDW Coefficient of Variation 15.2 % Platelet Count 491 K/uL Mean Platelet Volume 12.6 fL Sodium Level 136 mmol/L Potassium Level 4.0 mmol/L Chloride Level 95 mmol/L Carbon Dioxide Level 34 mmol/L Anion Gap 7.0 mmol/L Blood Urea Nitrogen 19 mg/dl Creatinine 1.20 mg/dl Est Creatinine Clear Calc Drug Dose 54.5 ml/min Estimated GFR () 61.5 Estimated GFR (Non- 53.0 BUN/Creatinine Ratio 16.2 Random Glucose 225 mg/dl Calcium Level 9.2 mg/dl Total Bilirubin 0.2 mg/dl Aspartate Amino Transf (AST/SGOT) 28 U/L Alanine Aminotransferase (ALT/SGPT) 134 U/L Alkaline Phosphatase 628 U/L Total Protein 6.8 gm/dl Albumin 2.3 gm/dl Globulin 4.5 gm/dl Albumin/Globulin Ratio 0.5 Bedside Glucose 198 mg/dl Assessment and Plan (1) Pneumonia Assessment & Plan: no sputum, all blood cultures negative, would give 7 days total zosyn and vanco.
--- NOTE | 2016-09-12 19:58 | Progress Note ---
Medicine Progress Note Date & Time of Visit: Sep 12, 2016 at 19:52. Subjective Patient seen and examined. Pain at stump site. Notes that she had family visit her today. Overall feeling better. Motivated to return to [facility]. Objective Physical Exam: General-awake; alert; NAD Eyes-EOMI; no scleral icterus Neck-no stridor; trachea midline Lungs-CTA bilaterally; no wheezes/crackles Heart-RRR; no m/r/g Abdomen-soft; NTND; nBS Extremities-right stump incision/angelica c/d/i Neuro-no focal deficits Laboratory Results: Last 24 Hours Test 09/11/16 20:28 09/12/16 05:32 09/12/16 06:27 09/12/16 12:09 Bedside Glucose 183 mg/dl 198 mg/dl 240 mg/dl White Blood Count 8.44 K/uL Red Blood Count 3.32 M/uL Hemoglobin 9.3 g/dL Hematocrit 29.5 % Mean Corpuscular Volume 88.9 fL Mean Corpuscular Hemoglobin 28.0 pg Mean Corpuscular Hemoglobin Concent 31.5 g/dl RDW Standard Deviation 49.7 fL RDW Coefficient of Variation 15.2 % Platelet Count 491 K/uL Mean Platelet Volume 12.6 fL Sodium Level 136 mmol/L Potassium Level 4.0 mmol/L Chloride Level 95 mmol/L Carbon Dioxide Level 34 mmol/L Anion Gap 7.0 mmol/L Blood Urea Nitrogen 19 mg/dl Creatinine 1.20 mg/dl Est Creatinine Clear Calc Drug Dose 54.5 ml/min Estimated GFR () 61.5 Estimated GFR (Non- 53.0 BUN/Creatinine Ratio 16.2 Random Glucose 225 mg/dl Calcium Level 9.2 mg/dl Total Bilirubin 0.2 mg/dl Aspartate Amino Transf (AST/SGOT) 28 U/L Alanine Aminotransferase (ALT/SGPT) 134 U/L Alkaline Phosphatase 628 U/L Total Protein 6.8 gm/dl Albumin 2.3 gm/dl Globulin 4.5 gm/dl Albumin/Globulin Ratio 0.5 Test 09/12/16 17:06 Bedside Glucose 240 mg/dl Assessment & Plan Complicated 51 year old female discharged from [facility] to [facility] following right BKA for osteomyelitis, presented to the ED with confusion, fever, hypoxia. SEPSIS secondary to Health Care Associated Pneumonia -Presented with fever, confusion, tachycardia, hypoxia, leukocytosis, hyperglycemia, MABEL -Lactate <2, BP stable -Likely source: pneumonia -? aspiration component as patient had emesis prior -Blood cultures negative -Sputum culture pending -Urine culture negative -Continue Zosyn, Vancomycin x7 days -ID consulted -C. diff toxin negative -Flu negative FUNGEMIA -Blood culture on 08/25 with areli albicans; repeat culture on 08/27 negative ( from [place]) -ID consulted -Caspofungin changed to fluconazole per ID --> discontinued as patient has completed course and cultures here are negative H/O OSTEOMYELITIS S/P RIGHT BKA -Amputation on 09/06 -Right heel wound culture with pansensitive pseudomonas (from [place]) ACUTE BLOOD LOSS ANEMIA -secondary to Right BKA on 09/06 -transfused 1unit PRBC's -Hgb stable ACUTE RENAL FAILURE -crea 1.7 on admission, baseline around 1 -likely secondary to dehydration, sepsis -hold diuretics -received IVF hydration -resolved TRANSAMINITIS -possibly related to medications -liver ultrasound unremarkable -downtrending IDDM -with hyperglycemia on admission -insulin coverage -pharmacy consulted for glycemic control -A1c of 9.5 CAD -states she occasionally has intermittent chest pain -mild bump in troponin, likely demand in the setting of sepsis and anemia -EKG nonischemic -continue BB, Statin, Aspirin, lisinopril -TTE unremarkable HLD -continue statin HTN -improving -continue BB -increased lisinopril DEPRESSION -continue Prozac, Wellbutrin GERD -continue PPI, Carafate DVT PROPHYLAXIS: SCDs, RE: anemia CODE STATUS: FULL CODE Anticipate discharge to [facility]. Will require insurance authorization. Remove left femoral central line and place PICC line tomorrow to complete course of antibiotics and for blood draws (patient is a difficult stick). Consultants: Infectious disease Procedures: TTE * The left ventricle is normal in size. * There is normal left ventricular wall thickness. * There is very mild hypokinesis of the apical septum with otherwise normal wall motion * Left ventricular systolic function is normal. * Ejection Fraction = 55-60%. * There is no significant valvular disease noted on transthoracic imaging Current Inpatient Medications: Current Inpatient Medications Medications (Trade) Dose Ordered Sig/Josseline Route Start Time Stop Time Status Last Admin Dose Admin Nitroglycerin (Nitrostat Tab) 0.4 mg UD PRN SL 09/09/16 09:45 10/09/16 09:44 Insulin Aspart (novoLOG ASPART) SLIDING SCALE If C... ACHS SC 09/09/16 13:30 10/09/16 13:29 09/12/16 18:19 8 UNITS Glucose (Glucose 40% Gel) 15-30 GRAMS 15 GRAMS... UD PRN PO 09/09/16 10:00 10/09/16 09:59 Glucose (Glucose Chew Tab) 4-8 Tablets 4 Tabl... UD PRN PO 09/09/16 10:00 10/09/16 09:59 Dextrose (Dextrose 50% 50ML Syringe) 25-50ML OF 50% DW IV FOR... UD PRN IV 09/09/16 10:00 10/09/16 09:59 Glucagon (Glucagon Inj) 1 mg UD PRN SQ 09/09/16 10:00 10/09/16 09:59 Miscellaneous Information (Consult Glycemic Management Pharmacy) 1 ea UD PRN N/A 09/09/16 11:47 10/09/16 11:46 Albuterol (Ventolin Hfa Inhaler) 2 puffs Q6H PRN INH 09/09/16 10:30 10/09/16 10:29 Aspirin (Ecotrin Tab) 81 mg DAILY PO 09/10/16 09:00 10/10/16 08:59 09/12/16 09:00 81 MG Atorvastatin Calcium (Lipitor Tab) 40 mg DAILY PO 09/10/16 09:00 10/10/16 08:59 09/12/16 09:00 40 MG Bupropion HCl (Wellbutrin-Sr Tab) 100 mg DAILY PO 09/10/16 09:00 10/10/16 08:59 09/12/16 09:00 100 MG Fluoxetine HCl (Prozac Cap) 60 mg DAILY PO 09/10/16 09:00 10/10/16 08:59 09/12/16 09:00 60 MG Fluticasone Propionate (Flonase Nasal [place]) 2 sprays DAILY NA 09/10/16 09:00 10/10/16 08:59 09/12/16 09:02 2 SPRAYS Gabapentin (Neurontin Cap) 600 mg TID PO 09/09/16 14:00 10/09/16 13:59 09/12/16 13:44 600 MG Isosorbide Mononitrate (Imdur Ext Rel Tab) 30 mg QAM PO 09/10/16 09:00 10/10/16 08:59 09/12/16 08:59 30 MG Metoprolol Succinate (Toprol Xl Tab) 12.5 mg BID PO 09/09/16 21:00 10/09/16 20:59 09/12/16 08:59 12.5 MG Nystatin (Mycostatin Susp) 5 ml QID PO 09/09/16 13:00 09/19/16 12:59 09/12/16 13:00 5 ML Oxycodone HCl (Roxicodone Immediate Rel Tab) 5 mg Q4H PRN PO 09/09/16 10:30 09/23/16 10:29 09/12/16 18:10 5 MG Pantoprazole Sodium (Protonix Tab) 40 mg DAILY PO 09/10/16 09:00 10/10/16 08:59 09/12/16 09:01 40 MG Polyethylene (Miralax Powder Packet) 17 gm DAILY PRN PO 09/09/16 10:30 10/09/16 10:29 Prochlorperazine Maleate (Compazine Tab) 5 mg Q6H PRN PO 09/09/16 10:30 10/09/16 10:29 09/11/16 16:29 5 MG Senna/Docusate Sodium (Senokot S Tab) 1 tab BID PO 09/09/16 21:00 10/09/16 20:59 09/12/16 09:01 1 TAB Sucralfate (Carafate Tab) 1 gm ACHS PO 09/09/16 16:15 10/09/16 16:14 09/12/16 18:13 1 GM Triamcinolone Acetonide (Kenalog 0.5% Crm) 1 appln BID EXT 09/09/16 21:00 10/09/16 20:59 09/12/16 09:02 1 APPLN Cholecalciferol (Vitamin D Tab) 2,000 inter.unit DAILY PO 09/10/16 09:00 10/10/16 08:59 09/12/16 09:01 2,000 INTER.UNIT Ferrous Gluconate (Ferrous Gluconate Tab) 324 mg DAILY PO 09/10/16 09:00 10/10/16 08:59 09/12/16 09:01 324 MG Miscellaneous Information (Order Awaiting Action) 1 ea QS N/A 09/09/16 16:00 10/09/16 15:59 Acetaminophen/ Hydrocodone Bitart ([place] 5/325 Tab) 1 tab Q6H PRN PO 09/09/16 13:45 09/23/16 13:44 09/12/16 16:22 1 TAB Piperacillin Sod/ Tazobactam Sod (Consult) 1 ea UD PRN N/A 09/09/16 14:00 10/09/16 13:59 Vancomycin HCl (Consult) 1 ea UD PRN N/A 09/09/16 14:00 10/09/16 13:59 Morphine Sulfate (Oramorph Sr Tab) 15 mg DAILY PO 09/10/16 10:00 09/24/16 09:59 09/12/16 09:16 15 MG Hydralazine HCl (HydrALAZINE INJ) 5 mg Q6 PRN IV. 09/10/16 12:45 10/10/16 12:44 09/12/16 03:38 5 MG Metoclopramide HCl (Reglan Tab) 5 mg AC PO 09/11/16 07:00 10/11/16 06:59 09/12/16 18:12 5 MG Insulin Glargine (Lantus Solostar Pen) 16 unit BID SC 09/11/16 09:00 10/11/16 08:59 09/12/16 09:00 16 UNIT Sodium Chloride 1 sprays 1 sprays PRN PRN NA 09/11/16 08:30 10/11/16 08:29 09/11/16 11:35 1 SPRAYS Piperacillin Sod/ Tazobactam Sod 4.5 gm/Dextrose 120 ml @ 30 mls/hr Q8H IV 09/11/16 14:00 09/23/16 13:59 09/12/16 13:44 30 MLS/HR Vancomycin HCl/ Sodium Chloride (Vancomycin Inj/ Nss 250ml) 275 ml @ 125 mls/hr Q18H IV 09/12/16 10:00 09/23/16 16:14 09/12/16 10:48 125 MLS/HR Insulin Aspart (novoLOG ASPART) SLIDING SCALE If C... 0200 ONCE SC 09/13/16 02:00 09/13/16 02:01 Lisinopril (Zestril Tab) 40 mg QAM PO 09/12/16 09:00 10/12/16 08:59 09/12/16 09:18 40 MG
[2016-09-12] MEDS ORDERED: MoRPHine SULFATE 4 MG/ML 1 ML CARP\\VIAL IV ONE (20:15)
[2016-09-12] MEDS ORDERED: ACETAMINOPHEN 325 MG TAB PO PRN (23:45)
[2016-09-12] MEDS ORDERED: ALBUT/IPRATROP 3MG/0.5MG NEB 3 ML VIAL INH PRN (23:45)
[2016-09-12] MEDS ORDERED: NURSING VERBAL MED ORDER ONE ×2 (23:45)
[2016-09-13] MEDS: ALBUTEROL HFA 8 GM INHALER INH PRN ×2 (00:04→07:32)
[2016-09-13] MEDS ORDERED: HYDROCODONE/ACETAMOPHEN 5/325MG TAB PO PRN (01:45)
[2016-09-13] MEDS ORDERED: INSULIN ASPART 100 UNITS/ML 3 ML PEN SC ONE (02:00)
[2016-09-13] MEDS: OXYCODONE HCL IR 5 MG TAB (IMMEDIATE RELEASE) PO PRN ×4 (02:28→15:47)
[2016-09-13] MEDS: VANCOMYCIN INJ 1,250 MG in SODIUM CHLORIDE 0.9% 250ML 250 ML IV SCH (03:37)
[2016-09-13 06:04] LABS: HEMATOCRIT 27.7 % (37-47); MEAN CELL VOLUME 87.4 fL (80-100); MEAN CORPUSCULAR HEMOGLOBIN 27.8 pg (25-34); MEAN CORPUSCULAR HGB CONC 31.8 g/dl (32-36); MEAN PLATELET VOLUME 11.6 fL (7.4-10.4); PLATELET COUNT 483 K/uL (130-400); RED BLOOD COUNT 3.17 M/uL (4.2-5.4); WHITE BLOOD COUNT 8.27 K/uL (4.8-10.8)
[2016-09-13] MEDS: PIPERACILL/TAZOBAC IV 4.5 GM in DEXTROSE 5% 100ML IV SCH ×2 (06:15→15:53)
[2016-09-13 06:49] LABS: BUN/CREATININE RATIO 13.1 (10-20); CALCIUM 9.2 mg/dl (8.5-10.1); CREATININE 1.2 mg/dl (0.60-1.20); POTASSIUM 4.1 mmol/L (3.5-5.1)
[2016-09-13 06:52] LABS: ALB/GLOB RATIO 0.6 (0.9-2)
[2016-09-13 07:18] VITALS: BP 147/85; PULSE 83; TEMP 36.7; O2SAT 94
[2016-09-13] MEDS: SUCRALFATE 1 GM TAB PO SCH ×2 (07:42→12:59)
[2016-09-13] MEDS: METOCLOPRAMIDE HCL 5 MG TAB PO SCH ×2 (07:42→13:00)
[2016-09-13] MEDS: MoRPHine SULFATE CR 15 MG TAB (MS CONTIN) PO SCH (08:35)
[2016-09-13] MEDS: ASPIRIN 81 MG ECTAB PO SCH (08:36)
[2016-09-13] MEDS: CHOLECALCIFEROL 1000 INTER.UNIT TAB PO SCH (08:36)
[2016-09-13] MEDS: GABAPENTIN 300 MG CAP PO SCH ×2 (08:36→15:54)
[2016-09-13] MEDS: ATORVASTATIN 40 MG TAB PO SCH (08:36)
[2016-09-13] MEDS: FLUOXETINE HCL 20 MG CAP PO SCH (08:37)
[2016-09-13] MEDS: LISINOPRIL 40 MG TAB PO SCH (08:37)
[2016-09-13] MEDS: BuPROPion SR 100 MG TABCR PO SCH (08:38)
[2016-09-13] MEDS: FERROUS GLUCONATE 324 MG TAB PO SCH (08:38)
[2016-09-13] MEDS: METOPROLOL SUCC 25MG EXT REL TAB PO SCH (08:38)
[2016-09-13] MEDS: DOCUSATE SODIUM/SENNA 50/8.6MG TAB PO SCH (08:39)
[2016-09-13] MEDS: PANTOprazole SOD 40 MG TAB PO SCH (08:39)
[2016-09-13] MEDS: NYSTATIN SUSP 500,000 U/5 ML UDC PO SCH ×2 (08:40→13:01)
[2016-09-13] MEDS: ISOSORBIDE MONONITRATE 30 MG TABCR PO SCH (08:40)
[2016-09-13] MEDS: TRIAMCINOLONE ACET 0.5% CR 15 GM TUBE EXT SCH (08:41)
[2016-09-13] MEDS: FLUTICASONE PROPIONATE NA SPR 16 GM BTL SCH (08:42)
[2016-09-13] MEDS: INSULIN ASPART 100 UNITS/ML 3 ML PEN SC SCH ×2 (08:47→13:05)
[2016-09-13] MEDS ORDERED: INSULIN GLARGINE SOLOSTAR 100 UNITS/ML 3 ML PEN SC SCH ×2 (09:00→21:00)
--- NOTE | 2016-09-13 15:13 | Progress Note ---
Subjective Date of Service: Sep 13, 2016. Subjective Pt evaluation today including: conversation w/ patient, physical exam, lab review, review of studies, review of inpatient medication list Saw/examined the patient in room 383 She's doing okay today c/o RLE stump pain +weakness, but doing okay Problem List Medical Problems: (1) Anemia Status: Acute (2) Change in mental status Status: Acute (3) Headache Status: Acute (4) History of transient ischemic attack Status: Acute (5) Left sided numbness Status: Acute (6) Pneumonia Status: Acute (7) Sepsis Status: Acute Review of Systems Constitutional: + weakness, No chills, No fever Respiratory: No cough, No shortness of breath, No sputum Cardiac: No chest pain, No edema Abdomen: No diarrhea, No nausea, No pain, No vomiting Musculoskeletal: + joint pain (RLE stump) Medications Current Inpatient Medications Medications (Trade) Dose Ordered Sig/Josseline Route Start Time Stop Time Status Last Admin Dose Admin Nitroglycerin (Nitrostat Tab) 0.4 mg UD PRN SL 09/09/16 09:45 10/09/16 09:44 Insulin Aspart (novoLOG ASPART) SLIDING SCALE If C... ACHS SC 09/09/16 13:30 10/09/16 13:29 09/13/16 13:05 9 UNITS Glucose (Glucose 40% Gel) 15-30 GRAMS 15 GRAMS... UD PRN PO 09/09/16 10:00 10/09/16 09:59 Glucose (Glucose Chew Tab) 4-8 Tablets 4 Tabl... UD PRN PO 09/09/16 10:00 10/09/16 09:59 Dextrose (Dextrose 50% 50ML Syringe) 25-50ML OF 50% DW IV FOR... UD PRN IV 09/09/16 10:00 10/09/16 09:59 Glucagon (Glucagon Inj) 1 mg UD PRN SQ 09/09/16 10:00 10/09/16 09:59 Miscellaneous Information (Consult Glycemic Management Pharmacy) 1 ea UD PRN N/A 09/09/16 11:47 10/09/16 11:46 Albuterol (Ventolin Hfa Inhaler) 2 puffs Q6H PRN INH 09/09/16 10:30 10/09/16 10:29 09/13/16 07:32 2 PUFFS Aspirin (Ecotrin Tab) 81 mg DAILY PO 09/10/16 09:00 10/10/16 08:59 09/13/16 08:36 81 MG Atorvastatin Calcium (Lipitor Tab) 40 mg DAILY PO 09/10/16 09:00 10/10/16 08:59 09/13/16 08:36 40 MG Bupropion HCl (Wellbutrin-Sr Tab) 100 mg DAILY PO 09/10/16 09:00 10/10/16 08:59 09/13/16 08:38 100 MG Fluoxetine HCl (Prozac Cap) 60 mg DAILY PO 09/10/16 09:00 10/10/16 08:59 09/13/16 08:37 60 MG Fluticasone Propionate (Flonase Nasal [place]) 2 sprays DAILY NA 09/10/16 09:00 10/10/16 08:59 09/13/16 08:42 2 SPRAYS Gabapentin (Neurontin Cap) 600 mg TID PO 09/09/16 14:00 10/09/16 13:59 09/13/16 08:36 600 MG Isosorbide Mononitrate (Imdur Ext Rel Tab) 30 mg QAM PO 09/10/16 09:00 10/10/16 08:59 09/13/16 08:40 30 MG Metoprolol Succinate (Toprol Xl Tab) 12.5 mg BID PO 09/09/16 21:00 10/09/16 20:59 09/13/16 08:38 12.5 MG Nystatin (Mycostatin Susp) 5 ml QID PO 09/09/16 13:00 09/19/16 12:59 09/13/16 13:01 5 ML Pantoprazole Sodium (Protonix Tab) 40 mg DAILY PO 09/10/16 09:00 10/10/16 08:59 09/13/16 08:39 40 MG Polyethylene (Miralax Powder Packet) 17 gm DAILY PRN PO 09/09/16 10:30 10/09/16 10:29 Prochlorperazine Maleate (Compazine Tab) 5 mg Q6H PRN PO 09/09/16 10:30 10/09/16 10:29 09/11/16 16:29 5 MG Senna/Docusate Sodium (Senokot S Tab) 1 tab BID PO 09/09/16 21:00 10/09/16 20:59 09/13/16 08:39 1 TAB Sucralfate (Carafate Tab) 1 gm ACHS PO 09/09/16 16:15 10/09/16 16:14 09/13/16 12:59 1 GM Triamcinolone Acetonide (Kenalog 0.5% Crm) 1 appln BID EXT 09/09/16 21:00 10/09/16 20:59 09/13/16 08:41 1 APPLN Cholecalciferol (Vitamin D Tab) 2,000 inter.unit DAILY PO 09/10/16 09:00 10/10/16 08:59 09/13/16 08:36 2,000 INTER.UNIT Ferrous Gluconate (Ferrous Gluconate Tab) 324 mg DAILY PO 09/10/16 09:00 10/10/16 08:59 09/13/16 08:38 324 MG Miscellaneous Information (Order Awaiting Action) 1 ea QS N/A 09/09/16 16:00 10/09/16 15:59 Piperacillin Sod/ Tazobactam Sod (Consult) 1 ea UD PRN N/A 09/09/16 14:00 10/09/16 13:59 Vancomycin HCl (Consult) 1 ea UD PRN N/A 09/09/16 14:00 10/09/16 13:59 Morphine Sulfate (Oramorph Sr Tab) 15 mg DAILY PO 09/10/16 10:00 09/24/16 09:59 09/13/16 08:35 15 MG Hydralazine HCl (HydrALAZINE INJ) 5 mg Q6 PRN IV. 09/10/16 12:45 10/10/16 12:44 09/12/16 03:38 5 MG Metoclopramide HCl (Reglan Tab) 5 mg AC PO 09/11/16 07:00 10/11/16 06:59 09/13/16 13:00 5 MG Sodium Chloride 1 sprays 1 sprays PRN PRN NA 09/11/16 08:30 10/11/16 08:29 09/11/16 11:35 1 SPRAYS Piperacillin Sod/ Tazobactam Sod 4.5 gm/Dextrose 120 ml @ 30 mls/hr Q8H IV 09/11/16 14:00 4/13/17 23:59 09/13/16 06:15 30 MLS/HR Vancomycin HCl/ Sodium Chloride (Vancomycin Inj/ Nss 250ml) 275 ml @ 125 mls/hr Q18H IV 09/12/16 10:00 09/15/16 23:59 09/13/16 03:37 125 MLS/HR Lisinopril (Zestril Tab) 40 mg QAM PO 09/12/16 09:00 10/12/16 08:59 09/13/16 08:37 40 MG Acetaminophen/ Hydrocodone Bitart ([place] 5/325 Tab) 1 tab for pain scale 1-3 an... Q6H PRN PO 09/13/16 01:45 09/27/16 01:44 Oxycodone HCl (Roxicodone Immediate Rel Tab) 5mg for pain scale 5-7 ... Q4H PRN PO 09/12/16 22:30 09/26/16 22:29 09/13/16 11:16 10 MG Acetaminophen (Tylenol Tab) 650 mg Q6H PRN PO 09/12/16 23:45 10/12/16 23:44 09/13/16 00:06 650 MG Albuterol/ Ipratropium (Duoneb) 3 ml Q6H PRN INH 09/12/16 23:45 10/12/16 23:44 Heparin Sodium (Porcine) (Heparin 10 Unit/ ml 5 ml Flush) 5 ml PRN PRN FLUSH 09/13/16 03:15 10/13/16 03:14 09/13/16 11:16 5 ML Insulin Glargine (Lantus Solostar Pen) 20 unit BID SC 09/13/16 09:00 10/13/16 08:59 09/13/16 08:48 20 UNIT Objective Vital Signs Date Time Temp Pulse Resp B/P Pulse Ox O2 Delivery O2 Flow Rate FiO2 09/13/16 07:25 Room Air 09/13/16 07:18 36.7 83 18 147/85 94 Room Air 09/12/16 23:30 98 Room Air 09/12/16 23:00 36.5 75 18 126/78 97 Room Air 09/12/16 16:10 Room Air Physical Exam General Appearance: no apparent distress Respiratory/Chest: lungs clear, normal breath sounds, no respiratory distress, no accessory muscle use Cardiovascular: regular rate, rhythm, no edema, no murmur Abdomen: non tender, soft Extremities: + pertinent finding (RLE stump) Neurologic/Psychiatric: alert, normal mood/affect Laboratory Results Last 24 Hours Test 09/12/16 17:06 09/12/16 20:41 09/13/16 01:56 09/13/16 05:55 Bedside Glucose 240 mg/dl 296 mg/dl 265 mg/dl White Blood Count 8.27 K/uL Red Blood Count 3.17 M/uL Hemoglobin 8.8 g/dL Hematocrit 27.7 % Mean Corpuscular Volume 87.4 fL Mean Corpuscular Hemoglobin 27.8 pg Mean Corpuscular Hemoglobin Concent 31.8 g/dl RDW Standard Deviation 48.3 fL RDW Coefficient of Variation 15.2 % Platelet Count 483 K/uL Mean Platelet Volume 11.6 fL Sodium Level 138 mmol/L Potassium Level 4.1 mmol/L Chloride Level 99 mmol/L Carbon Dioxide Level 33 mmol/L Anion Gap 6.0 mmol/L Blood Urea Nitrogen 16 mg/dl Creatinine 1.20 mg/dl Est Creatinine Clear Calc Drug Dose 54.5 ml/min Estimated GFR () 61.5 Estimated GFR (Non- 53.0 BUN/Creatinine Ratio 13.1 Random Glucose 185 mg/dl Calcium Level 9.2 mg/dl Total Bilirubin 0.2 mg/dl Aspartate Amino Transf (AST/SGOT) 17 U/L Alanine Aminotransferase (ALT/SGPT) 98 U/L Alkaline Phosphatase 529 U/L Total Protein 6.6 gm/dl Albumin 2.4 gm/dl Globulin 4.2 gm/dl Albumin/Globulin Ratio 0.6 Test 09/13/16 08:24 09/13/16 12:09 Bedside Glucose 200 mg/dl 165 mg/dl Assessment and Plan Complicated 51 year old female discharged from [facility] to [facility] following right BKA for osteomyelitis, presented to the ED with confusion, fever, hypoxia. SEPSIS secondary to Health Care Associated Pneumonia 09/13 appreciate ID input will continue Vanco/Zosyn for 7 days total will need three additional days of treatment PICC line placed d/c to [facility] today -Presented with fever, confusion, tachycardia, hypoxia, leukocytosis, hyperglycemia, MABEL -Lactate <2, BP stable -Likely source: pneumonia -? aspiration component as patient had emesis prior -Blood cultures negative -Sputum culture pending -Urine culture negative -Continue Zosyn, Vancomycin x7 days -ID consulted -C. diff toxin negative -Flu negative FUNGEMIA - resolved -Blood culture on 08/25 with areli albicans; repeat culture on 08/27 negative ( from [place]) -ID consulted -Caspofungin changed to fluconazole per ID --> discontinued as patient has completed course and cultures here are negative H/O OSTEOMYELITIS S/P RIGHT BKA -Amputation on 09/06 -Right heel wound culture with pansensitive pseudomonas (from [place]) patient is developing phantom limb syndrome continue PT/OT; may need TENS ACUTE BLOOD LOSS ANEMIA 09/13 Hgb = 8.8 today, monitor at [facility] -secondary to Right BKA on 09/06 -transfused 1unit PRBC's -Hgb stable ACUTE RENAL FAILURE - resolved -crea 1.7 on admission, baseline around 1 -likely secondary to dehydration, sepsis -hold diuretics -received IVF hydration -resolved TRANSAMINITIS -possibly related to medications -liver ultrasound unremarkable -downtrending IDDM -with hyperglycemia on admission -insulin coverage -pharmacy consulted for glycemic control -A1c of 9.5 CAD -states she occasionally has intermittent chest pain -mild bump in troponin, likely demand in the setting of sepsis and anemia -EKG nonischemic -continue BB, Statin, Aspirin, lisinopril -TTE unremarkable HLD -continue statin HTN -improving -continue BB -increased lisinopril DEPRESSION -continue Prozac, Wellbutrin GERD -continue PPI, Carafate DVT PROPHYLAXIS: SCDs, RE: anemia CODE STATUS: FULL CODE Anticipate discharge to [facility]. Will require insurance authorization. Remove left femoral central line and place PICC line tomorrow to complete course of antibiotics and for blood draws (patient is a difficult stick).
[2016-09-13] MEDS ORDERED: OXYC1TAB3 PO (15:22)
[2016-09-13] MEDS ORDERED: VANC1INJ9 IV (15:22)
[2016-09-13] MEDS ORDERED: ZSYI45 IV (15:22)
[2016-09-13] MEDS ORDERED: LSN40 PO (15:22)
--- NOTE | 2016-09-13 15:26 | Discharge Instructions ---
Discharge Instructions Date of Service Sep 13, 2016. Admission Reason for Admission: Anemia,Change In Mental Status, Pneumonia, Sepsis Discharge Discharge Diagnosis / Problem: Sepsis secondary to HCAPs, anemia s/p PRBCs Discharge Goals Goal(s): Decrease discomfort, Improve function Activity Recommendations Activity Limitations: resume your previous activity . Instructions / Follow-Up Instructions / Follow-Up Should have H/H checked in one week To be on Zosyn and Vancomycin for three more days PT/OT for new RLE amputation Current Hospital Diet Patient's current hospital diet: AHA Diet (Heart Healthy), Diabetes Type 2 Diet Discharge Diet Recommended Diet: AHA Diet (Heart Healthy), Diabetes Type 2 Diet Pending Studies Studies pending at discharge: no Laboratory Results Hemoglobin A1c Test 09/10/16 04:45 Range/Units Estimated Average Glucose 226 mg/dl Hemoglobin A1c 9.5 H 4.5-5.6 % Medical Emergencies . Who to Call and When: Medical Emergencies: If at any time you feel your situation is an emergency, please call 911 immediately. . Non-Emergent Contact Non-Emergency issues call your: Primary Care Provider . . "Provider Documentation" section prepared by Dave Rivas. VTE Core Measure Inpt VTE Proph given/why not?: SCD's [place] Drug Monitoring Program Search Results: patient reviewed within database, no issues identified, see additional documentation Drug Monitoring Findings: last given 30 pills of Oxycodone IR on 09/02
[2016-09-13 15:28] VITALS: BP 109/64; PULSE 92; TEMP 36.5; O2SAT 96
[2016-09-13 15:29] VITALS: BP 112/68; O2SAT 93
--- NOTE | 2016-09-13 15:31 | Discharge Summary ---
Discharge Summary Date of Service Sep 13, 2016. Discharge Summary Admission Date: Sep 09, 2016 at 09:33 Discharge Date: Sep 13, 2016 Discharge Disposition: Rehab Principal Diagnosis: Sepsis and metabolic encephalopathy secondary to health-care associated pneumonia Recent RLE BKA Procedures: TTE * The left ventricle is normal in size. * There is normal left ventricular wall thickness. * There is very mild hypokinesis of the apical septum with otherwise normal wall motion * Left ventricular systolic function is normal. * Ejection Fraction = 55-60%. * There is no significant valvular disease noted on transthoracic imaging Consultations: Infectious disease Admission Information HPI (per Admitting provider): Patient seen and examined. 51 year old female with PMHx of IDDM, HTN, HLD, CAD , depression GERD, and recent right foot osteomyelitis s/p BKA, MRSA, and fungemia presents to the ED from [facility] with AMS this morning. Per report patient was found confused this AM. She was febrile at 103 F, she was hypoxic on RA. EMS was called and she was brought to the ED for further evaluation. When seen by this designer/writer nursing staff states patients mental status has improved. She was still unsure where she was and slow to answer questions. She reports she has been feeling very cold recently, she has rhinorrhea, and cough. She denies sputum production. She states sometimes she has chest pain. She reports diarrhea and dysuria. She states she has had vomiting recently and states sometimes she feels like she chokes. She denies SOB. Patient was discharged from [facility] yesterday following a RBKA for osteomyelitis. A blood culture on 08/25 grew areli albicans. At [facility] she was receiving vancomycin, Cipro and caspofungin. In the ED patient is febrile, tachycardic, and hypoxic, wbc count is 13K, lactate is <2, CXR shows left base infiltrate. Crea is 1.7 She received duonebs, IVFs, Vanco, Zosyn, and caspofungin. She is resting comfortably. She will be admitted for further workup and treatment. Physical Exam (per Admitting): General Appearance: + pertinent finding (WD/WN 51 year old female who appears older than stated age lying in bed in [facility] ) Head: normocephalic, atraumatic Eyes: PERRL, EOMI, sclerae normal ENT: hearing grossly normal, pharynx normal Neck: supple, no JVD Respiratory/Chest: chest non-tender, no respiratory distress, no accessory muscle use, + crackles (trace, left base ) Cardiovascular: no edema, no gallop, no JVD, no murmur, normal peripheral pulses, + tachycardia (100s) Abdomen/GI: normal bowel sounds, non tender, no organomegaly Back: normal inspection, no muscle spasm Extremities/Musculoskelatal: no calf tenderness, normal capillary refill, no pedal edema, + pertinent finding (right BKA ) Neurologic/Psych: + pertinent finding (Alert, oriented to time, and self. Answers questions approrpiately with encouragement and prompting. No focal deficits ) Skin: normal color, warm/dry, no rash Lymphatic: no adenopathy Hospital Course Complicated 51 year old female discharged from [facility] to [facility] following right BKA for osteomyelitis, presented to the ED with confusion, fever, hypoxia. Admitted on 09/09 - metabolic encephalopathy found to have infiltrate on L base recent hospital stay; and 1 stay stint at [facility] treated with Vanco + Zosyn for health care associated pneumonia will need three additional days of treatment d/c'd caspofungin and fluconazole Anemia - transfused 1 unit PRBC H/H stable SEPSIS secondary to Health Care Associated Pneumonia 09/13 appreciate ID input will continue Vanco/Zosyn for 7 days total will need three additional days of treatment PICC line placed d/c to [facility] today -Presented with fever, confusion, tachycardia, hypoxia, leukocytosis, hyperglycemia, MABEL -Lactate <2, BP stable -Likely source: pneumonia -? aspiration component as patient had emesis prior -Blood cultures negative -Sputum culture pending -Urine culture negative -Continue Zosyn, Vancomycin x7 days -ID consulted -C. diff toxin negative -Flu negative FUNGEMIA - resolved -Blood culture on 08/25 with areli albicans; repeat culture on 08/27 negative ( from [place]) -ID consulted -Caspofungin changed to fluconazole per ID --> discontinued as patient has completed course and cultures here are negative H/O OSTEOMYELITIS S/P RIGHT BKA -Amputation on 09/06 -Right heel wound culture with pansensitive pseudomonas (from [place]) patient is developing phantom limb syndrome continue PT/OT; may need TENS ACUTE BLOOD LOSS ANEMIA 09/13 Hgb = 8.8 today, monitor at [facility] -secondary to Right BKA on 09/06 -transfused 1unit PRBC's -Hgb stable ACUTE RENAL FAILURE - resolved -crea 1.7 on admission, baseline around 1 -likely secondary to dehydration, sepsis -hold diuretics -received IVF hydration -resolved TRANSAMINITIS -possibly related to medications -liver ultrasound unremarkable -downtrending IDDM -with hyperglycemia on admission -insulin coverage -pharmacy consulted for glycemic control -A1c of 9.5 CAD -states she occasionally has intermittent chest pain -mild bump in troponin, likely demand in the setting of sepsis and anemia -EKG nonischemic -continue BB, Statin, Aspirin, lisinopril -TTE unremarkable HLD -continue statin HTN -improving -continue BB -increased lisinopril DEPRESSION -continue Prozac, Wellbutrin GERD -continue PPI, Carafate DVT PROPHYLAXIS: SCDs, RE: anemia CODE STATUS: FULL CODE Anticipate discharge to [facility]. Will require insurance authorization. Remove left femoral central line and place PICC line tomorrow to complete course of antibiotics and for blood draws (patient is a difficult stick). Total time spent on discharge = 45 minutes This includes examination of the patient, discharge planning, medication reconciliation, and communication with other providers. Discharge Instructions Should have H/H checked in one week To be on Zosyn and Vancomycin for three more days PT/OT for new RLE amputation
[2016-09-13 15:45] VITALS: BP 120/72; PULSE 87; TEMP 36.6; O2SAT 95
[2016-09-13 15:49] VITALS: BP 120/72; PULSE 87; TEMP 36.6; O2SAT 95
[2016-09-13 15:56] VITALS: BP 121/78; PULSE 86; TEMP 36.8; O2SAT 92
[2016-09-14] MEDS ORDERED: VANCOMYCIN TROUGH SCH (15:30)
== END 2016-09-13 17:30 | DRG 871 ==
LOC: ENRESERVTM → ENRESERVDT → EDBD 07:36 → C.EDA 07:40 → C.2E 09:33 → EDBEDREQ 10:34 → EDBEDREQSVC 09-12 08:59 → EDBEDREQ 09-12 08:59 → C.MSN 09-12 10:51
PROVIDERS: ADMIT Internal Medicine; ATTEND Family Medicine
PROC: 02HV33Z Insertion of Infusion Device into Superior Vena Cava, Percutaneous Approach (ICD-10-PCS; principal; 2016-09-13)
DX: A41.9 Sepsis, unspecified organism (principal); G93.41 Metabolic encephalopathy; J69.0 Pneumonitis due to inhalation of food and vomit; N17.9 Acute kidney failure, unspecified; D62 Acute posthemorrhagic anemia; I24.8 Other forms of acute ischemic heart disease; B49 Unspecified mycosis; Y95 Nosocomial condition; K21.9 Gastro-esophageal reflux disease without esophagitis; E78.5 Hyperlipidemia, unspecified; I25.10 Atherosclerotic heart disease of native coronary artery without angina pectoris; F32.9 Major depressive disorder, single episode, unspecified; E86.0 Dehydration; R09.02 Hypoxemia; D72.829 Elevated white blood cell count, unspecified; R00.0 Tachycardia, unspecified; G54.6 Phantom limb syndrome with pain; E11.65 Type 2 diabetes mellitus with hyperglycemia; R50.9 Fever, unspecified; R41.82 Altered mental status, unspecified; R11.10 Vomiting, unspecified; I10 Essential (primary) hypertension; J44.9 Chronic obstructive pulmonary disease, unspecified; E11.319 Type 2 diabetes mellitus with unspecified diabetic retinopathy without macular edema; G43.909 Migraine, unspecified, not intractable, without status migrainosus; E11.43 Type 2 diabetes mellitus with diabetic autonomic (poly)neuropathy; K31.84 Gastroparesis; Z87.39 Personal history of other diseases of the musculoskeletal system and connective tissue; Z86.14 Personal history of Methicillin resistant Staphylococcus aureus infection; Z86.73 Personal history of transient ischemic attack (TIA), and cerebral infarction without residual deficits; Z89.511 Acquired absence of right leg below knee; Z87.891 Personal history of nicotine dependence; Z79.4 Long term (current) use of insulin; Z79.82 Long term (current) use of aspirin; Z86.718 Personal history of other venous thrombosis and embolism; Z79.51 Long term (current) use of inhaled steroids; Z79.899 Other long term (current) drug therapy; Z79.891 Long term (current) use of opiate analgesic

== ENCOUNTER 2016-09-14 10:17 | Emergency (ER) | payer OTHER ==
[~2016-09-14] VITALS: Ht 168.9 cm; Wt 68.5 kg
[~2016-09-14 10:17] MED LIST changes: -ADVIN10/60 INH; +ARTIFICIAL TEARS OP; -BISA10SU5 PR; +BUPR100T8 PO; -BUTA1CAP20 PO; +CHOL2000 PO; +CLR10 PO; +CRFL PO; +DIPH1TAB87 PO; -DOCU-94 PO; +FLUT115A INH; -FURO-85 PO; -HEPA1INJ22 SQ; -LCTL30 PO; +LCTX PO; -LISI-729 PO; +LSN40 PO; +METO5TAB2 PO; -MOMLX PO; +MORP15TA PO; -MULT-513 PO; +NVLGI/PEN SC; +NYSS/ PO; -ONDA4TAB46 PO; +ONDANSETRON ODT PO; -OXYC-57 PO; -OXYC-59 PO; +OXYC1TAB3 PO; -POTA10TA PO; +PROM25TA9 PO; +TRMCR515 TOP; +VANC1INJ9 IV; +ZSYI45 IV
[2016-09-14 10:20] VITALS: TEMP 36.8; Ht 168.9 cm; Wt 68.5 kg
--- NOTE | 2016-09-14 10:47 | EMERGENCY ROOM VISIT NOTE ---
History Report prepared by Blue: Samia Brown Under the Supervision of: Dr. Yasir Taylor D.O. First contact with patient: 10:28 Chief Complaint: PICC LINE CLOTTED Stated Complaint: CANT GIVE ANTIBIOTICS, PICC LINE POSSIBLE CLOT History of Present Illness The patient is a 51 year old female who presents to the Emergency Room with complaints of a persistent clogged PICC line starting today. It was placed yesterday at the hospital. She has no other complaints. Source of History: patient Onset: today Position: other (PICC line) Quality: other (clogged) Timing: other (persistent) Note: Pt reports no other complaints. Review of Systems See HPI for pertinent positives & negatives. A total of 6 systems reviewed and were otherwise negative. Past Medical & Surgical Medical Problems: (1) CAD (coronary artery disease) (2) Chronic deep vein thrombosis (DVT) of left upper extremity (3) Chronic osteomyelitis involving right ankle and foot (4) COPD (chronic obstructive pulmonary disease) (5) Depression (6) Diabetes (7) Diabetic retinopathy (8) DM type 2 (diabetes mellitus, type 2) (9) Gastroparesis (10) GERD (gastroesophageal reflux disease) (11) History of migraine (12) Hyperlipidemia (13) Hypertension (14) TIA (transient ischemic attack) (15) TIA (transient ischemic attack) Surgical Problems: (1) H/O eye surgery (2) History of esophagogastroduodenoscopy (EGD) (3) S/P amputation (4) S/P cholecystectomy (5) Status post skin graft Family History Cardiac disorder MOTHER Diabetes mellitus FATHER MOTHER SISTER FH: cancer MOTHER Hypertension FATHER Social History Smoking Status: Former Smoker Marital Status: single Occupation Status: unemployed Current/Historical Medications Scheduled Aspirin (Aspirin Ec), 81 MG PO DAILY Atorvastatin (Lipitor), 40 MG PO DAILY Bupropion (Wellbutrin Sr), 100 MG PO QAM Cholecalciferol (Vitamin D3), 1 CAP PO DAILY Diphenhydramine Hcl (Benadryl Allergy), 1 TAB PO Q6H Ferrous Gluconate (Ferrous Gluconate), 1 TAB PO QDB Fluoxetine (Prozac), 60 MG PO DAILY Fluticasone Propionate (Nasal) (Flonase Allergy Relief), 2 SPRAYS NA DAILY Fluticasone-Salmeterol 115/21 Mcg (Advair Hfa 115/21 Mcg), 2 PUFF INH BID Gabapentin (Gabapentin), 600 MG PO TID Insulin Aspart (Novolog Flexpen), 3 UNITS SC UD Insulin Aspart (Novolog Flexpen), 6 SC QDD Insulin Glargine (Lantus), 16 UNITS SQ BID Isosorbide Mononitrate Ext Rel (Imdur Ext Rel), 30 MG PO QAM Lactobacillus Acidophilus (Lactinex), 1 TAB PO BID Lisinopril (Lisinopril), 40 MG PO QAM Loratadine (Claritin), 10 MG PO DAILY Metoclopramide Hcl (Metoclopramide Hcl), 5 MG PO QID Metoprolol Succinate (Toprol Xl), 12.5 MG PO BID Nystatin (Nystatin Suspension), 5 ML PO QID Pantoprazole (Pantoprazole Sodium), 1 TAB PO DAILY Piperacillin/Tazobactam Sod (Zosyn 4-0.5 gm), 4.5 GM IV Q8 Polyethylene (Miralax), 17 GM PO DAILY Senna/Docusate Sod (Senokot S), 1 TAB PO BID Sucralfate (Carafate), 10 ML PO Q6H Triamcinolone Acet (Triamcinolone Acetonide), 1 APPLN TOP BID Vancomycin Hcl In Dextrose (Vancomycin Hcl In Dextros), 1,250 MG IV q18 [Ondansetron Odt], 4 MG PO Q8H Scheduled PRN Acetaminophen Tab (Tylenol), 650 MG PO Q4 PRN for Pain or Fever Albuterol Sulfate (Proventil Hfa), 2 PUFFS INH BID PRN for SOB/Wheezing Morphine Sulfate Ir (Morphine Sulfate Ir), 15 MG PO DAILY PRN for Pain Oxycodone Ir (Roxicodone Ir), 5 MG PO Q4H PRN for Severe Pain Promethazine Hcl (Phenergan), 25 MG PO Q6H PRN for Nausea [Artif Tears Op Melina], 1 DROP OP TID PRN for PRN Allergies Coded Allergies: Metoclopramide (Unverified Allergy, Severe, unknown, 09/09/16) Ondansetron (Unverified Allergy, Severe, unknown, 09/09/16) Sulfa Antibiotics (Unverified Allergy, Severe, unknown, 09/09/16) Amoxicillin (Unverified Allergy, Unknown, UNKNOEN, 09/09/16) Bee Venom (Unverified Allergy, Unknown, HIVES, 09/09/16) Clavulanic Acid (Unverified Allergy, Unknown, UNKNOWN, 09/09/16) Erythromycin (Unverified Allergy, Unknown, UNKNOWN, 09/09/16) Procaine (Unverified Allergy, Unknown, UNKNOWN, 09/09/16) Ethanol (Verified Adverse Reaction, Severe, seizure per pt, 09/09/16) Guaifenesin (Verified Adverse Reaction, Severe, seizure per pt, 09/09/16) Physical Exam Vital Signs Date Time Temp Pulse Resp B/P Pulse Ox O2 Delivery O2 Flow Rate FiO2 09/14/16 10:20 36.8 95 18 153/89 96 Nasal Cannula 2.0 Physical Exam CONSTITUTIONAL/VITAL SIGNS: Reviewed / noted above. GENERAL: Non-toxic in appearance. INTEGUMENTARY: Warm, dry, and [place]. HEAD: Normocephalic. EYES: without scleral icterus or trauma. ENT/OROPHARYNX: clear and moist. LYMPHADENOPATHY/NECK: Is supple without lymphadenopathy or meningismus. RESPIRATORY: Lungs clear and equal. CARDIOVASCULAR: Regular rate and rhythm. GI/ABDOMEN: Soft and nontender. No organomegaly or pulsatile mass. No rebound or guarding. Normal bowel sounds. EXTREMITIES: Warm and well perfused. PICC line in left upper extremity. BACK: No CVA tenderness. NEUROLOGICAL: Intact without focal deficits. PSYCHIATRIC: normal affect. MUSCULOSKELETAL: Normally developed with good muscle tone. Medical Decision & Procedures ED Course 1030: Previous medical records were reviewed. The patient was evaluated in room A3. A complete history and physical examination was performed. 1040: The nurses have examined the PICC line and determined that it is now functioning. 1047: On reevaluation, the patient is resting comfortably. I discussed the results and findings with the patient. She verbalized agreement of the treatment plan. She was discharged home. Medical Decision Differential diagnoses: malfunction of PICC line, DVT, decorating machine operator error. The patient was sent here from [facility] because the PICC line was not working. The PICC line nurse checked the PICC line out and states that it is working fine. There is a clamp on the PICC line that was likely not unclamped prior to injection at [facility]. The PICC line is operative and the patient is discharged. Impression Primary Impression: Occluded PICC line Scribe Attestation The scribe's documentation has been prepared under my direction and personally reviewed by me in its entirety. I confirm that the note above accurately reflects all work, treatment, procedures, and medical decision making performed by me. Departure Information Dispostion Home / Self-Care Referrals [facility] (PCP) Patient Instructions My [facility] Additional Instructions Unclamp PICC line in order to use.
[2016-09-14 11:28] VITALS: BP 180/88; PULSE 97; O2SAT 96
== END 2016-09-14 11:31 | disposition home or self-care (01) ==
LOC: C.EDB 10:18 → C.EDA 11:31
DX: T82.898A Other specified complication of vascular prosthetic devices, implants and grafts, initial encounter (principal); X58.XXXA Exposure to other specified factors, initial encounter; I10 Essential (primary) hypertension; E78.5 Hyperlipidemia, unspecified; E11.319 Type 2 diabetes mellitus with unspecified diabetic retinopathy without macular edema; I25.10 Atherosclerotic heart disease of native coronary artery without angina pectoris; K21.9 Gastro-esophageal reflux disease without esophagitis; F32.9 Major depressive disorder, single episode, unspecified; J44.9 Chronic obstructive pulmonary disease, unspecified; K31.84 Gastroparesis; Z86.73 Personal history of transient ischemic attack (TIA), and cerebral infarction without residual deficits; Z86.718 Personal history of other venous thrombosis and embolism; Z89.9 Acquired absence of limb, unspecified; Z90.49 Acquired absence of other specified parts of digestive tract; Z98.890 Other specified postprocedural states; Z87.891 Personal history of nicotine dependence; Z79.82 Long term (current) use of aspirin; Z79.4 Long term (current) use of insulin; Z79.899 Other long term (current) drug therapy; Z88.1 Allergy status to other antibiotic agents; Z88.2 Allergy status to sulfonamides; Z88.8 Allergy status to other drugs, medicaments and biological substances